=== PATIENT | male | born 1975 | race Caucasian/White ===

== ENCOUNTER 2018-03-17 18:19 | Emergency (ER) | payer OTHER ==
[2018-03-17] MEDS ORDERED: PROPARACAINE 0.5% OPHTH DROPS 15 ML EACHEYE STA (18:44)
--- NOTE | 2018-03-17 19:16 | ED Physician Documentation ---
PD HPI OPHTHO - Stated complaint Stated Complaint: R EYE F/O - Chief complaint Chief Complaint: Heent - History obtained from History obtained from: Patient - History of Present Illness Timing - onset: How many days ago (2) Timing - duration: Days (2) Timing - details: Abrupt onset Pain level max: 4 Pain level now: 3 Location: Right Quality / character: Aching Associated symptoms: Redness, Tearing, FB sensation Contributing factors: Work related, Other (Patient was grinding metal at work and later that day noted a discomfort to the right eye) Similar symptoms before: Has not had sx before Recently seen: Not recently seen Review of Systems Eyes: denies: Loss of vision, Decreased vision PD PAST MEDICAL HISTORY - Past Medical History Past Medical History: Yes Cardiovascular: None Respiratory: Pneumonia Endocrine/Autoimmune: Other GI: None : None HEENT: Chronic hearing loss Psych: None Musculoskeletal: None Derm: None - Past Surgical History Past Surgical History: No - Present Medications Home Medications: Ambulatory Orders Medication Instructions Recorded Confirmed Polymyxin B/Trimeth Ophth Drop 1 drops RIGHTEYE Q3H 7 Days #1 03/17/18 [Polytrim Ophth Drops] bottle - Allergies Allergies/Adverse Reactions: Allergies Allergy/AdvReac Type Severity Reaction Status Date / Time No Known Drug Allergies Allergy Verified 03/17/18 18:29 - Social History Does the pt smoke?: No Smoking Status: Never smoker Does the pt drink ETOH?: No Does the pt have substance abuse?: No - Immunizations Immunizations are current?: Yes PD ED PE NORMAL - Vitals Vital signs reviewed: Yes - General General: Alert and oriented X 3, No acute distress - HEENT HEENT: Moist mucous membranes - Neck Neck: Supple, no meningeal sign - Derm Derm: Warm and dry - Neuro Neuro: Alert and oriented X 3 PD ED PE EXPANDED - Eyes Eyes: Right eye, Normal eyelids, No eyelid FB (everted), Injected conj/sclera, Corneal FB (small metallic object inferolateral aspect of the cornea). No: Eyelid injury, Eyelid swelling Results - Vitals Vitals: Vital Signs - 24 hr 03/17/18 03/17/18 18:27 19:19 Temperature 36.7 C 36.8 C Heart Rate 86 83 Respiratory 18 17 Rate Blood Pressure 142/87 H 138/85 H O2 Saturation 96 95 Oxygen O2 Source Room air Procedures - FB removal FB location: Other (cornea) FB removal preparation: Other (proparacaine) Removal method: Other (slit lamp, 18g needle) FB removal aftercare: No complications, Patient tolerated well, Removed successfully PD MEDICAL DECISION MAKING - ED course Complexity details: considered differential, d/w patient ED course: Patient is a 42-year-old male with a small piece of metal embedded into the cornea of the right eye. This was removed. Tolerated well. There is a slight rust ring and will have him follow-up with ophthalmology for repeat evaluation. Tetanus is up-to-date. Will place on Polytrim ophthalmic. Patient counseled regarding signs and symptoms for which I believe and urgent re-evaluation would be necessary. Patient with good understanding of and agreement to plan and is comfortable going home at this time This document was made in part using voice recognition software. While efforts are made to proofread this document, sound alike and grammatical errors may occur. - Sepsis Event Vital Signs: Vital Signs - 24 hr 03/17/18 03/17/18 18:27 19:19 Temperature 36.7 C 36.8 C Heart Rate 86 83 Respiratory 18 17 Rate Blood Pressure 142/87 H 138/85 H O2 Saturation 96 95 Oxygen O2 Source Room air Departure - Departure Disposition: 01 Home, Self Care Clinical Impression: Status post removal of metal from eye Condition: Good Instructions: ED Foreign Body Cornea W Rust Ring Follow-Up: Rakan Vega MD [Provider Admit Priv/Credential] - Within 3 Days Prescriptions: Polymyxin B/Trimeth Ophth Drop [Polytrim Ophth Drops] 1 drops RIGHTEYE Q3H 7 Days #1 bottle Comments: Use the eyedrops as prescribed. Return if you worsen. It is very important to follow-up with ophthalmology to ensure that the entire foreign body was removed and there is not a ring of rust that needs to be removed from your eye. Discharge Date/Time: 03/17/18 19:27
[2018-03-17 19:19] VITALS: BP 138/85
== END 2018-03-17 19:27 | disposition home or self-care (01) ==
LOC: ED 18:19
DX: T15.01XA Foreign body in cornea, right eye, initial encounter (principal); W31.89XA Contact with other specified machinery, initial encounter; Y99.0 Civilian activity done for income or pay
CPT/HCPCS: 65222; 99283; J3490

== ENCOUNTER 2018-11-24 21:28 | Emergency (ER) | payer OTHER ==
[2018-11-24 21:39] VITALS: BP 147/78
[2018-11-24] MEDS ORDERED: CLINDAMYCIN 150 MG CAPSULE PO STA (21:49)
[2018-11-24] MEDS ORDERED: HYDROcod/ACET 5/325 Prepack 4 PO STA (21:49)
--- NOTE | 2018-11-24 21:51 | ED Physician Documentation ---
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 It's been a couple of years since he saw his dentist. No facial swelling or fevers.) Review of Systems Constitutional: denies: Fever, Chills Eyes: reports: Reviewed and negative Ears: reports: Reviewed and negative Nose: denies: Rhinorrhea / runny nose, Congestion PD PAST MEDICAL HISTORY - Past Medical History Past Medical History: Yes Cardiovascular: None Respiratory: Pneumonia Endocrine/Autoimmune: Other GI: None : None HEENT: Chronic hearing loss Psych: None Musculoskeletal: None Derm: None Other Past Medical History: Weagener's Disease - Past Surgical History Past Surgical History: No - Present Medications Home Medications: Ambulatory Orders Medication Instructions Recorded Confirmed Clindamycin HCl [Clindamycin 300MG 300 mg PO Q6H #28 capsule 11/24/18 CAP] Hydrocodone/Acetaminophen 1 - 2 each PO Q6H PRN #14 tablet 11/24/18 [Hydrocodon-Acetaminophen 5-325] - Allergies Allergies/Adverse Reactions: Allergies Allergy/AdvReac Type Severity Reaction Status Date / Time No Known Drug Allergies Allergy Verified 11/24/18 21:39 - Social History Does the pt smoke?: No Smoking Status: Never smoker Does the pt drink ETOH?: No Does the pt have substance abuse?: No - Immunizations Immunizations are current?: Yes - POLST Patient has POLST: No PD ED PE NORMAL - Vitals Vital signs reviewed: Yes - General General: Alert and oriented X 3, No acute distress - HEENT HEENT: Other (Mild tenderness of the left mandibular canine without facial swelling, sublingual edema, or trismus.) - Neck Neck: Supple, no meningeal sign, No bony TTP - Neuro Neuro: Alert and oriented X 3, Normal speech Results - Vitals Vitals: Vital Signs - 24 hr 11/24/18 21:30 Temperature 36.6 C Heart Rate 72 Respiratory 18 Rate Blood Pressure 147/78 H O2 Saturation 96 Oxygen O2 Source Room air Departure - Departure Disposition: 01 Home, Self Care Clinical Impression: Pain due to dental caries Condition: Good Record reviewed to determine appropriate education?: Yes Instructions: ED Tooth Pain Prescriptions: Clindamycin HCl [Clindamycin 300MG CAP] 300 mg PO Q6H #28 capsule Hydrocodone/Acetaminophen [Hydrocodon-Acetaminophen 5-325] 1 - 2 each PO Q6H PRN #14 tablet PRN Reason: pain Comments: It is very important that you follow-up with a dentist. When it comes to dental problems like yours, the emergency department can only offer a short-term solution to your long-term problem. A couple of low cost options for dental care include: [facility] in [place], calls [phone] for an appointment Or [facility] in [place], call [phone] for an appointment. Do not drink or drive while taking narcotic pain medication. Note that many narcotic pain relievers also contain Tylenol/acetaminophen. Please ensure that your total dose of acetaminophen from all sources does not exceed 3 g (3000 mg) per day. You may get constipated while on this medication. Take a stool softener such as Colace twice a day while you are on it. Also add an [id number] laxative such as senna or MiraLAX on any day that you do not have a bowel movement. If you received a narcotic pain medication or sedative while in the emergency department, do not drive for the next 24 hours. Your blood pressure was elevated today on check into the emergency department. This does not mean that you have hypertension, it is a common phenomenon to come to the emergency department and have elevated blood pressure. I recommend that you see your primary care physician within the week to have it rechecked when you are feeling better.
== END 2018-11-24 21:59 | disposition home or self-care (01) ==
LOC: ED 21:28
DX: K02.9 Dental caries, unspecified (principal); K08.89 Other specified disorders of teeth and supporting structures; R03.0 Elevated blood-pressure reading, without diagnosis of hypertension; M31.30 Wegener's granulomatosis without renal involvement
CPT/HCPCS: 99283; A9270

== ENCOUNTER 2020-03-09 11:48 | Emergency (ER) | payer MEDICAID, OTHER ==
--- NOTE | 2020-03-09 12:52 | ED Physician Documentation ---
History of Present Illness - Stated complaint Stated Complaint: L SIDE PX - Chief complaint Chief Complaint: General - History obtained from History obtained from: Patient - History of Present Illness Timing: Yesterday (44-year-old gentleman with history of Eliz's granulomatosis in remission, still gets monthly plasma infusions for same. Has had a minimally productive cough and increasing shortness of breath since last night. No fevers. Complains of pleuritic left-sided chest pain. No pedal edema or calf pain.) Review of Systems Constitutional: denies: Fever, Chills Cardiac: reports: Chest pain / pressure. denies: Palpitations Respiratory: reports: Dyspnea, Cough. denies: Hemoptysis, Wheezing GI: denies: Abdominal Pain PD PAST MEDICAL HISTORY - Past Medical History Cardiovascular: None Respiratory: Pneumonia Endocrine/Autoimmune: Other GI: None : None HEENT: Chronic hearing loss Psych: None Musculoskeletal: None Derm: None - Past Surgical History Past Surgical History: No - Present Medications Home Medications: Ambulatory Orders Medication Instructions Recorded Confirmed Clindamycin HCl [Clindamycin 300MG 300 mg PO Q6H #28 capsule 11/24/18 CAP] Hydrocodone/Acetaminophen 1 - 2 each PO Q6H PRN #14 tablet 11/24/18 [Hydrocodon-Acetaminophen 5-325] Amoxicillin 1,000 mg PO TID #60 capsule 03/09/20 Oxycodone HCl/Acetaminophen 1 - 2 each PO Q6H PRN #7 tablet 03/09/20 [Percocet 5-325 mg Tablet] - Allergies Allergies/Adverse Reactions: Allergies Allergy/AdvReac Type Severity Reaction Status Date / Time No Known Drug Allergies Allergy Verified 11/24/18 21:39 - Social History Does the pt smoke?: No Smoking Status: Never smoker Does the pt drink ETOH?: No Does the pt have substance abuse?: No - Immunizations Immunizations are current?: Yes - POLST Patient has POLST: No PD ED PE NORMAL - Vitals Vital signs reviewed: Yes - General General: Alert and oriented X 3, No acute distress - HEENT HEENT: PERRL, EOMI - Neck Neck: Supple, no meningeal sign, No bony TTP - Cardiac Cardiac: RRR, No murmur - Respiratory Respiratory: Other (Mildly diminished at the left base) - Abdomen Abdomen: Non tender - Extremities Extremities: No edema, No calf tenderness / cord - Neuro Neuro: Alert and oriented X 3, Normal speech Results - Vitals Vitals: Vital Signs - 24 hr 03/09/20 03/09/20 11:51 13:00 Temperature 36.4 C L Heart Rate 91 80 Respiratory 18 18 Rate Blood Pressure 151/96 H 138/95 H O2 Saturation 96 97 Oxygen O2 Source Room air - Labs Labs: Laboratory Tests 03/09/20 03/09/20 03/09/20 13:02 13:02 13:02 WBC 8.8 RBC 5.23 Hgb 16.1 Hct 48.0 MCV 91.8 MCH 30.8 MCHC 33.5 RDW 12.7 Plt Count 319 MPV 10.1 Neut # (Auto) 7.0 H Lymph # (Auto) 1.0 L [place] # (Auto) 0.7 Eos # (Auto) 0.1 Baso # (Auto) 0.0 Absolute Nucleated RBC 0.00 Nucleated RBC % 0.0 Sodium 137 Potassium 3.9 Chloride 100 L Carbon Dioxide 28 Anion Gap 9.0 BUN 13 Creatinine 0.7 Estimated GFR (MDRD) 122 Glucose 97 Lactic Acid 1.1 Calcium 8.9 Total Bilirubin 0.7 AST 43 H ALT 88 H Alkaline Phosphatase 70 Total Protein 7.6 Albumin 4.5 Globulin 3.1 Albumin/Globulin Ratio 1.5 Lipase 31 PD MEDICAL DECISION MAKING - ED course ED course: 44-year-old gentleman with history of pneumonia presents with symptoms consist ent with prior episodes of pneumonia, namely left lateral pleuritic chest pain and cough. Nothing else to suggest PE which was considered though but he is PE RC negative. X-ray negative, but still suspect early pneumonia given left shift. Departure - Departure Disposition: 01 Home, Self Care Clinical Impression: Pneumonia Qualifiers: Pneumonia type: due to unspecified organism Laterality: left Lung location: lower lobe of lung Qualified Code(s): J18.9 - Pneumonia, unspecified organism Condition: Good Record reviewed to determine appropriate education?: Yes Instructions: Pneumonia Dc Prescriptions: Amoxicillin 1,000 mg PO TID #60 capsule Oxycodone HCl/Acetaminophen [Percocet 5-325 mg Tablet] 1 - 2 each PO Q6H PRN #7 tablet PRN Reason: pain Comments: Return for worsening shortness of breath, high fevers, or other new or concerning symptoms. Follow-up with your doctor around Monday or for recheck.
[2020-03-09 13:07] LABS: BASOPHILS % (AUTO) 0.2 %; EOSINOPHILS # (AUTO) 0.1 10^3/uL (0.0-0.7); EOSINOPHILS % (AUTO) 1.1 %; HGB - HEMOGLOBIN 16.1 g/dL (14.0-18.0); LYMPHOCYTES % (AUTO) 10.9 %; MEAN CORPUSCULAR HEMOGLOBIN 30.8 pg (27.0-31.0); MEAN CORPUSCULAR HGB CONC 33.5 g/dL (32.0-36.0); MEAN CORPUSCULAR VOLUME 91.8 fL (80.0-94.0); MEAN PLATELET VOLUME 10.1 fL (7.4-11.4); MONOCYTES # (AUTO) 0.7 10^3/uL (0.0-1.0); MONOCYTES % (AUTO) 7.4 %; NEUTROPHILS % (AUTO) 80.1 %; PLT - PLATELET COUNT 319 10^3/uL (130-450); RED BLOOD COUNT 5.23 10^6/uL (4.70-6.10); RED CELL DISTRIBUTION WIDTH 12.7 % (12.0-15.0); WHITE BLOOD COUNT 8.8 x10^3/uL (4.8-10.8)
[2020-03-09 13:28] LABS: ALBUMIN 4.5 g/dL (3.2-5.5); ALBUMIN/GLOBULIN RATIO 1.5 (1.0-2.2); BILIRUBIN,TOTAL 0.7 mg/dL (0.2-1.0); CALCIUM 8.9 mg/dL (8.5-10.3); CREATININE 0.7 mg/dL (0.6-1.2); TOTAL PROTEIN 7.6 g/dL (6.7-8.2)
[2020-03-09] MEDS ORDERED: oxyCODONE 5 MG TABLET PO STA (13:34)
--- NOTE | 2020-03-09 14:37 | XRAY Report ---
PROCEDURE: Chest 2 View X-Ray INDICATIONS: cough L cP TECHNIQUE: 2 view(s) of the chest. COMPARISON: 09/01/2015. FINDINGS: Surgical changes and devices: None. Lungs and pleura: No pleural effusions or pneumothorax. Lungs are clear. Mediastinum: Mediastinal contours are normal. Heart size is normal. Bones and chest wall: No suspicious bony abnormalities. Soft tissues appear unremarkable. IMPRESSION: No acute cardiopulmonary pathology. Reviewed by: Jesse Ramos MD on 03/09/2020 2:35 PM PDT Approved by: Jesse Ramos MD on 03/09/2020 2:35 PM PDT Station ID: [id number]
[2020-03-09] MEDS ORDERED: AMOXICILLIN 250 MG CAPSULE PO STA (15:02)
[2020-03-09 15:10] VITALS: BP 150/107
== END 2020-03-09 15:27 | disposition home or self-care (01) ==
LOC: ED 11:48
DX: J18.9 Pneumonia, unspecified organism (principal); Z20.828 Contact with and (suspected) exposure to other viral communicable diseases
CPT/HCPCS: 71046; 80053; 83605; 83690; 85025; 87635; 99284; A9270; 81599

== ENCOUNTER 2020-03-17 10:43 | Emergency (ER) | payer MEDICAID ==
--- NOTE | 2020-03-17 11:43 | ED Physician Documentation ---
History of Present Illness - Stated complaint Stated Complaint: DIFFICULTY BREATHING - Chief complaint Chief Complaint: Resp - History obtained from History obtained from: Patient - Additonal information Additional information: 44yom with hx wegeners, seen last week and dx clinical pna, cxr clear. Pleuritic CP now gone but slight more dyspnea exp at night and in AM with productive cough celine at night. No fever. No pedal edema/calf pain. Review of Systems Constitutional: reports: Chills, Sweats. denies: Fever Nose: denies: Rhinorrhea / runny nose Cardiac: denies: Chest pain / pressure, Palpitations, Pedal edema, Calf pain Respiratory: reports: Dyspnea, Cough. denies: Hemoptysis GI: denies: Abdominal Pain PD PAST MEDICAL HISTORY - Past Medical History Cardiovascular: None Respiratory: Pneumonia Endocrine/Autoimmune: Other GI: None : None HEENT: Chronic hearing loss Psych: None Musculoskeletal: None Derm: None - Past Surgical History Past Surgical History: No - Present Medications Home Medications: Ambulatory Orders Medication Instructions Recorded Confirmed Clindamycin HCl [Clindamycin 300MG 300 mg PO Q6H #28 capsule 11/24/18 CAP] Hydrocodone/Acetaminophen 1 - 2 each PO Q6H PRN #14 tablet 11/24/18 [Hydrocodon-Acetaminophen 5-325] Amoxicillin 1,000 mg PO TID #60 capsule 03/09/20 Oxycodone HCl/Acetaminophen 1 - 2 each PO Q6H PRN #7 tablet 03/09/20 [Percocet 5-325 mg Tablet] Albuterol Sulf [Ventolin Hfa 1 - 2 puffs INH Q4HR PRN #1 inhaler 03/17/20 Inhaler] Doxycycline Hyclate 100 mg PO BID #20 capsule 03/17/20 predniSONE [Deltasone] 20 mg PO [id number] #21 tab 03/17/20 - Allergies Allergies/Adverse Reactions: Allergies Allergy/AdvReac Type Severity Reaction Status Date / Time No Known Drug Allergies Allergy Verified 11/24/18 21:39 - Social History Does the pt smoke?: No Smoking Status: Never smoker Does the pt drink ETOH?: No Does the pt have substance abuse?: No - Immunizations Immunizations are current?: Yes - POLST Patient has POLST: No PD ED PE NORMAL - Vitals Vital signs reviewed: Yes - General General: Alert and oriented X 3, No acute distress - HEENT HEENT: PERRL, EOMI - Neck Neck: Supple, no meningeal sign, No bony TTP, No JVD - Cardiac Cardiac: RRR, No murmur - Respiratory Respiratory: No respiratory distress, Other (rhonchorous at bases, mild exp wheeze, good aire movement.) - Extremities Extremities: No edema, No calf tenderness / cord - Neuro Neuro: Alert and oriented X 3, Normal speech Results - Vitals Vitals: Vital Signs - 24 hr 03/17/20 10:55 Temperature 36.6 C Heart Rate 93 Respiratory 16 Rate Blood Pressure 138/93 H O2 Saturation 96 Oxygen O2 Source Room air PD MEDICAL DECISION MAKING - ED course ED course: 44yom with underlying lung dz, worse dyspnea and cough. Nothing to suggest CHF/ACS/PE. VS normal. Will chg abx to doxy and add prednisone and albuterol. Departure - Departure Disposition: 01 Home, Self Care Clinical Impression: Dyspnea, Wegeners granulomatosis Condition: Good Record reviewed to determine appropriate education?: Yes Instructions: ED Bronchitis Asthmatic Prescriptions: Albuterol Sulf [Ventolin Hfa Inhaler] 1 - 2 puffs INH Q4HR PRN #1 inhaler PRN Reason: Shortness Of Air/Wheezing predniSONE [Deltasone] 20 mg PO [id number] #21 tab Doxycycline Hyclate 100 mg PO BID #20 capsule Comments: Vitals are good and chest xray still looks clear. Stop the amoxicillin and start doxycycline. Also the prednisone for lung inflammation and albuterol for wheezing/shortness of breathe. Return if worse. Followup with your primary [facility] about Monday. Call today for appt.
--- NOTE | 2020-03-17 11:44 | XRAY Report ---
PROCEDURE: Chest 2 View X-Ray INDICATIONS: pnumonia dx TECHNIQUE: 2 view(s) of the chest. COMPARISON: 03/09/2020. FINDINGS: Surgical changes and devices: None. Lungs and pleura: No pleural effusions or pneumothorax. Lungs are clear. Mediastinum: Mediastinal contours are normal. Heart size is normal. Bones and chest wall: No suspicious bony abnormalities. Soft tissues appear unremarkable. IMPRESSION: Stable examination of the chest without acute cardiopulmonary abnormalities. No radiogra phic evidence for new or developing focal airspace disease. Reviewed by: Sesar Frausto MD on 03/17/2020 11:42 AM PDT Approved by: Sesar Frausto MD on 03/17/2020 11:42 AM PDT Station ID: [id number]
[2020-03-17 11:46] VITALS: BP 139/99
== END 2020-03-17 11:46 | disposition home or self-care (01) ==
LOC: ED 10:43
DX: M31.30 Wegener's granulomatosis without renal involvement (principal)
CPT/HCPCS: 71046; 99283

== ENCOUNTER 2020-06-30 19:59 | Emergency (ER) | payer MEDICAID ==
[2020-06-30] MEDS ORDERED: HYDROmorphone 1 MG/ML CARPUJECT IM STA (20:14)
[2020-06-30] MEDS ORDERED: AMOX/CLAV 875 MG/125 MG TABLET PO STA (20:14)
--- NOTE | 2020-06-30 20:17 | ED Physician Documentation ---
History of Present Illness - Stated complaint Stated Complaint: MOUTH PX - Chief complaint Chief Complaint: Heent - Additonal information Additional information: 44-year-old male presents the emergency department with ongoing left lower mouth pain. He has generally poor dentition and multiple cavities. He has an appointment scheduled with the dentist for repair of the painful tooth on Monday. He has no fevers, trismus or dysphonia. He is here for pain control. He reports that this morning he noticed that the lower part of his jaw had started to swell somewhat. He does have a history of Eliz's granulomatosis for which he gets plasma infusions every 28 days [facility]. He is not on an immune suppressant. Review of Systems Constitutional: denies: Fever, Chills Eyes: reports: Reviewed and negative Ears: reports: Reviewed and negative Nose: reports: Reviewed and negative Throat: reports: Dental pain / toothache. denies: Oral lesions / sores, Sore throat, Swollen tonsils, Swallowed foreign body Cardiac: denies: Chest pain / pressure, Palpitations Respiratory: denies: Dyspnea, Hemoptysis GI: denies: Abdominal Pain, Nausea, Vomiting, Constipation, Diarrhea, Hematemesis : denies: Dysuria, Frequency, Hesitancy Skin: denies: Rash, Lesions Musculoskeletal: reports: Joint pain (generalized at baseline). denies: Neck pain PD PAST MEDICAL HISTORY - Past Medical History Past Medical History: Yes Cardiovascular: None Respiratory: Pneumonia Endocrine/Autoimmune: Other GI: None : None HEENT: Chronic hearing loss Psych: None Musculoskeletal: None Derm: None - Past Surgical History Past Surgical History: No - Present Medications Home Medications: Ambulatory Orders Medication Instructions Recorded Confirmed Amox/Clav 875/125 [Augmentin] 1 each PO Q12H #20 tablet 06/30/20 Hydrocodone/Acetaminophen 1 each PO BID PRN #7 tablet 06/30/20 [Hydrocodone-Acetamin 5-325 mg] - Allergies Allergies/Adverse Reactions: Allergies Allergy/AdvReac Type Severity Reaction Status Date / Time No Known Drug Allergies Allergy Verified 06/30/20 20:06 - Social History Does the pt smoke?: No Smoking Status: Never smoker Does the pt drink ETOH?: No Does the pt have substance abuse?: No - Immunizations Immunizations are current?: Yes - POLST Patient has POLST: No PD ED PE EXPANDED - General General: Alert, Anxious, In Pain - HEENT HEENT: Atraumatic, Pharynx normal (generally poor dentition. tooth #20 tender to light palpation. no gumline swellign or erythema). No: Pharyngeal erythema Results - Vitals Vitals: Vital Signs - 24 hr 06/30/20 20:02 Temperature 36.3 C L Heart Rate 119 H Respiratory 18 Rate Blood Pressure 162/92 H O2 Saturation 96 Oxygen O2 Source Room air PD MEDICAL DECISION MAKING - ED course Complexity details: reviewed old records, reviewed results, re-evaluated patient, considered differential, d/w patient ED course: 44 year old male presents to the ED with worsening left lower mouth pain and mild swelling of the jaw. He has globally poor dentition and is scheduled to see a dentist in 3 days. No fevers, dysphonia or trismus. Pt initally appeared in pain and anxious. his HR was noted to be 119. He was given Dilaudid in the ED with moderate relief of pain. HR also improved. Pt was also given first dose of augmentin here in the ED and will be dc with a 10 days rx. Emergent return precautions discussed for worsening symptoms Departure - Departure Disposition: Home, Self Care Clinical Impression: Infected dental carries, Dentalgia Record reviewed to determine appropriate education?: Yes Prescriptions: Amox/Clav 875/125 [Augmentin] 1 each PO Q12H #20 tablet Hydrocodone/Acetaminophen [Hydrocodone-Acetamin 5-325 mg] 1 each PO BID PRN #7 tablet PRN Reason: Pain
[2020-06-30 20:42] VITALS: BP 141/91
== END 2020-06-30 20:51 | disposition home or self-care (01) ==
LOC: ED 19:59
DX: K04.7 Periapical abscess without sinus (principal); K02.9 Dental caries, unspecified; K08.89 Other specified disorders of teeth and supporting structures; M31.30 Wegener's granulomatosis without renal involvement
CPT/HCPCS: 96372; 99283; A9270; J1170

== ENCOUNTER 2020-08-17 17:08 | Emergency (ER) | payer MEDICAID ==
[2020-08-17 17:14] VITALS: BP 172/99
[2020-08-17] MEDS ORDERED: HYDROcod/ACETAM 5/325 MG TABLET PO STA (17:19)
--- NOTE | 2020-08-17 17:20 | ED Physician Documentation ---
History of Present Illness - Stated complaint Stated Complaint: MOUTH PX - Chief complaint Chief Complaint: General - History obtained from History obtained from: Patient - Additonal information Additional information: 44-year-old gentleman who had Eliz's granulomatosis in remission now has a Recurrence. Because of the treatments for that he says he has bad teeth and has had about 3 days of dental pain from the left mandibular premolar and molar. No facial swelling or fevers. Review of Systems Constitutional: reports: Reviewed and negative Eyes: reports: Reviewed and negative Ears: reports: Reviewed and negative Nose: reports: Reviewed and negative Throat: reports: Reviewed and negative PD PAST MEDICAL HISTORY - Past Medical History Cardiovascular: None Respiratory: Pneumonia Endocrine/Autoimmune: Other GI: None : None HEENT: Chronic hearing loss Psych: None Musculoskeletal: None Derm: None - Past Surgical History Past Surgical History: No - Present Medications Home Medications: Ambulatory Orders Medication Instructions Recorded Confirmed HYDROcod/ACETAM 5/325 [[place] 5/325] 1 - 2 tab PO Q6H PRN #15 tablet 08/17/20 Penicillin V Potassium 500 mg PO Q6HR #40 tablet 08/17/20 - Allergies Allergies/Adverse Reactions: Allergies Allergy/AdvReac Type Severity Reaction Status Date / Time No Known Drug Allergies Allergy Verified 08/17/20 17:14 - Social History Does the pt smoke?: No Smoking Status: Never smoker Does the pt drink ETOH?: No Does the pt have substance abuse?: No - Immunizations Immunizations are current?: Yes - POLST Patient has POLST: No PD ED PE NORMAL - Vitals Vital signs reviewed: Yes - General General: Alert and oriented X 3, No acute distress - HEENT HEENT: Other (Generally poor dentition, the second premolar and first molar on the left mandible are tender but no facial swelling, sublingual edema, or trismus.) - Neck Neck: Supple, no meningeal sign, No bony TTP - Neuro Neuro: Alert and oriented X 3 Results - Vitals Vitals: Vital Signs - 24 hr 08/17/20 17:10 Temperature 36.7 C Heart Rate 92 Respiratory 20 Rate Blood Pressure 172/99 H O2 Saturation 100 Oxygen O2 Source Room air Departure - Departure Disposition: 01 Home, Self Care Clinical Impression: Pain due to dental caries Condition: Good Record reviewed to determine appropriate education?: Yes Instructions: ED Cavity Dental Prescriptions: Penicillin V Potassium 500 mg PO Q6HR #40 tablet HYDROcod/ACETAM 5/325 [[place] 5/325] 1 - 2 tab PO Q6H PRN #15 tablet PRN Reason: Pain Comments: Make sure to follow-up with your dentist at [facility], next available appointment. Return if worsening.
== END 2020-08-17 17:25 | disposition home or self-care (01) ==
LOC: ED 17:08
DX: K02.9 Dental caries, unspecified (principal); M31.30 Wegener's granulomatosis without renal involvement
CPT/HCPCS: 99282; 99283; A9270

== ENCOUNTER 2020-09-29 06:26 | Emergency (ER) | payer MEDICAID ==
--- NOTE | 2020-09-29 07:23 | ED Physician Documentation ---
History of Present Illness - Stated complaint Stated Complaint: MOUTH PX - Chief complaint Chief Complaint: Heent - History obtained from History obtained from: Patient - History of Present Illness Timing: Chronic Pain level max: 9 Pain level now: 9 - Additonal information Additional information: 44-year-old male presents to the emergency department left lower dental pain. 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 He states that he has been trying to get a hold of his dentist at the emergency [facility] for 4 months. He states that he saw them last month and they took x-rays of his mouth but made no plan. He denies any fevers. No vomiting. No difficulty swallowing. Worse with eating and drinking. Nothing makes it better. Review of Systems Constitutional: denies: Fever, Chills GI: denies: Vomiting Skin: denies: Rash Musculoskeletal: denies: Neck pain, Back pain Neurologic: denies: Headache PD PAST MEDICAL HISTORY - Past Medical History Cardiovascular: None Respiratory: Pneumonia Endocrine/Autoimmune: Other GI: None : None HEENT: Chronic hearing loss Psych: None Musculoskeletal: None Derm: None - Past Surgical History Past Surgical History: No - Present Medications Home Medications: Ambulatory Orders Medication Instructions Recorded Confirmed HYDROcod/ACETAM 5/325 [[place] 5/325] 1 - 2 ea PO Q6H PRN #7 tablet 09/29/20 Penicillin V Potassium 500 mg PO Q6HR #40 tablet 09/29/20 - Allergies Allergies/Adverse Reactions: Allergies Allergy/AdvReac Type Severity Reaction Status Date / Time No Known Drug Allergies Allergy Verified 09/29/20 06:37 - Social History Does the pt smoke?: No Smoking Status: Never smoker Does the pt drink ETOH?: No Does the pt have substance abuse?: No - Immunizations Immunizations are current?: Yes - POLST Patient has POLST: No PD ED PE NORMAL - Vitals Vital signs reviewed: Yes - General General: Alert and oriented X 3, No acute distress - HEENT HEENT: Moist mucous membranes - Neck Neck: Supple, no meningeal sign - Derm Derm: Warm and dry - Neuro Neuro: Alert and oriented X 3 - Psych Psych: Normal mood, Normal affect PD ED PE EXPANDED - HEENT HEENT Visual: 1 - tenderness (dental caries) Results - Vitals Vitals: Vital Signs - 24 hr 09/29/20 06:35 Temperature 36.5 C Heart Rate 94 Respiratory 16 Rate Blood Pressure 163/102 H O2 Saturation 98 Oxygen O2 Source Room air PD MEDICAL DECISION MAKING - ED course Complexity details: reviewed old records, considered differential, d/w patient ED course: GARY reviewed. Patient has had 4 emergency department visits in 4 months for the same complaint. We reviewed emergency department usage. Reviewed his narcotic usage. Informed him that the policy of this ER is 3 narcotic prescriptions in a 12-month. Recommend that he follow-up with his dentist for further care. He should call them daily until he gets a call back from them. No abscess. Normal phonation. No trismus. Does have dental caries. Will place him on antibiotics. Patient counseled regarding signs and symptoms for which I believe and urgent re-evaluation would be necessary. Patient with good understanding of and agreement to plan and is comfortable going home at this time This document was made in part using voice recognition software. While efforts are made to proofread this document, sound alike and grammatical errors may occur. Departure - Departure Disposition: 01 Home, Self Care Clinical Impression: Pain due to dental caries Condition: Good Instructions: ED Tooth Pain Follow-Up: your,dentist this week [Other] Prescriptions: Penicillin V Potassium 500 mg PO Q6HR #40 tablet HYDROcod/ACETAM 5/325 [[place] 5/325] 1 - 2 ea PO Q6H PRN #7 tablet PRN Reason: Pain Comments: As we discussed, three narcotic prescriptions per 12 months is the limit that you can receive in the emergency department. This will be your third prescription from this ER in 4 months. You need to follow-up with your dentist for all further care. You need to call them daily until they can get you in and be seen. Take all antibiotics until gone. Do not drink alcohol or drive while on narcotic pain medicine. Note that many narcotic pain relievers also contain tylenol/acetaminophen. Please ensure that your total dose of acetaminophen from all sources does not exceed 3 grams (3000mg) per day. You may constipated on this medication, take a stool softener such as "Colace" twice a day while you are on it. Also recommend a ctht-xxo-balqeof laxative such as senna or MiraLAX any day that you do not have a bowel movement. If you received narcotic pain medication in the emergency department, do not drive or operate machinery for the next 24 hours.
[2020-09-29] MEDS ORDERED: HYDROcod/ACETAM 5/325 MG TABLET PO STA (07:24)
[2020-09-29 07:49] VITALS: BP 157/79
== END 2020-09-29 07:49 | disposition home or self-care (01) ==
LOC: ED 06:26
DX: K02.9 Dental caries, unspecified (principal); K08.89 Other specified disorders of teeth and supporting structures; M31.30 Wegener's granulomatosis without renal involvement
CPT/HCPCS: 99282; 99284; A9270

== ENCOUNTER 2020-11-04 14:04 | Emergency (ER) | payer MEDICAID ==
--- NOTE | 2020-11-04 14:22 | ED Physician Documentation ---
History of Present Illness - Stated complaint Stated Complaint: FEVER - Chief complaint Chief Complaint: General - History obtained from History obtained from: Patient - Additonal information Additional information: Gentleman has a history of Eliz's granulomatosis for which he receives every 4 week plasma infusions. He was exposed to somebody with Covid a few days ago and over the last couple of days has developed a fever to 100.3, minimally productive cough and shortness of breath. Review of Systems Constitutional: reports: Fever, Chills Nose: denies: Rhinorrhea / runny nose Throat: denies: Sore throat Respiratory: reports: Dyspnea, Cough PD PAST MEDICAL HISTORY - Past Medical History Cardiovascular: None Respiratory: Pneumonia Endocrine/Autoimmune: Other GI: None : None HEENT: Chronic hearing loss Psych: None Musculoskeletal: None Derm: None - Past Surgical History Past Surgical History: No - Present Medications Home Medications: Ambulatory Orders Medication Instructions Recorded Confirmed HYDROcod/ACETAM 5/325 [[place] 5/325] 1 - 2 ea PO Q6H PRN #7 tablet 09/29/20 Penicillin V Potassium 500 mg PO Q6HR #40 tablet 09/29/20 - Allergies Allergies/Adverse Reactions: Allergies Allergy/AdvReac Type Severity Reaction Status Date / Time No Known Drug Allergies Allergy Verified 11/04/20 14:10 - Social History Does the pt smoke?: No Smoking Status: Never smoker Does the pt drink ETOH?: No Does the pt have substance abuse?: No - Immunizations Immunizations are current?: Yes - POLST Patient has POLST: No PD ED PE NORMAL - Vitals Vital signs reviewed: Yes - General General: Alert and oriented X 3, No acute distress, Well developed/nourished - Cardiac Cardiac: RRR, No murmur - Respiratory Respiratory: No respiratory distress, Clear bilaterally - Abdomen Abdomen: Non tender - Neuro Neuro: Alert and oriented X 3, Normal speech Results - Vitals Vitals: Vital Signs - 24 hr 11/04/20 11/04/20 14:10 14:36 Temperature 36.9 C Heart Rate 110 H 95 Respiratory 20 12 Rate Blood Pressure 135/79 H 114/83 H O2 Saturation 98 97 Oxygen O2 Source Room air - Labs Labs: Laboratory Tests 11/04/20 14:25 Nasal Adenovirus (PCR) NOT DETECTED Nasal B. parapertussis DNA (PCR) NOT DETECTED Nasal Coronavir 229E PCR NOT DETECTED Nasal Coronavir HKU1 PCR NOT DETECTED Nasal Coronavir NL63 PCR NOT DETECTED Nasal Coronavir OC43 PCR NOT DETECTED Nasal Enterovir/Rhinovir PCR NOT DETECTED Nasal Influenza B PCR NOT DETECTED Nasal Influenza A PCR NOT DETECTED Nasal Parainfluen 1 PCR NOT DETECTED Nasal Parainfluen 2 PCR NOT DETECTED Nasal Parainfluen 3 PCR NOT DETECTED Nasal Parainfluen 4 PCR NOT DETECTED Nasal RSV (PCR) NOT DETECTED Nasal B.pertussis DNA PCR NOT DETECTED Nasal C.pneumoniae (PCR) NOT DETECTED Aiden Human Metapneumo PCR NOT DETECTED Nasal M.pneumoniae (PCR) NOT DETECTED Nasal SARS-CoV-2 (PCR) NOT DETECTED - Rads (name of study) 1v chest Radiology: EMP read contemporaneously (NAD) PD MEDICAL DECISION MAKING - ED course ED course: 45-year-old gentleman presents with some anxiety about potentially having Covid given his underlying comorbidities. Rapid coronavirus test was negative and his chest x-ray is negative as well. We did do a rapid test because if the vinson test had been positive, he would be a candidate for antibody infusion. Departure - Departure Disposition: 01 Home, Self Care Clinical Impression: Viral URI with cough Condition: Good Record reviewed to determine appropriate education?: Yes Instructions: ED Viral Syndrome Comments: Coronavirus test and chest x-ray are negative. Return if worsening but right now you can treat this like any other cough or cold.
--- NOTE | 2020-11-04 14:47 | XRAY Report ---
PROCEDURE: Chest 1 View X-Ray INDICATIONS: cough TECHNIQUE: One view of the chest was acquired. COMPARISON: 03/17/2020 chest x-ray FINDINGS: Surgical changes and devices: None. Lungs and pleura: No pleural effusions or pneumothorax. Lungs are clear. Mediastinum: Mediastinal contours appear normal. Heart size is normal. Bones and chest wall: No suspicious bony lesions. Overlying soft tissues appear unremarkable. IMPRESSION: No acute process. Reviewed by: Kevin Pemberton MD on 11/04/2020 2:46 PM PST Approved by: Kevin Pemberton MD on 11/04/2020 2:46 PM PST Station ID: [id number]
[2020-11-04 15:28] LABS: B. PARAPERTUSSIS- RESP PCR PAN NOT DETECTED; B. PERTUSSIS- RESP PCR PANEL NOT DETECTED; C. PNEUMONIAE- RESP PCR PANEL NOT DETECTED; CORONAVIRUS 229E-RESP PCR NOT DETECTED; CORONAVIRUS HKU1-RESP PCR NOT DETECTED; CORONAVIRUS NL63-RESP PCR NOT DETECTED; CORONAVIRUS OC43-RESP PCR NOT DETECTED; HUMAN METAPNEUMOVIRUS NOT DETECTED; INFLUENZA A- RESP PCR PANEL NOT DETECTED; INFLUENZA B - RESP PCR PANEL NOT DETECTED; M. PNEUMONIAE- RESP PCR PANEL NOT DETECTED; PARAINFLUENZA VIRUS 1 NOT DETECTED; PARAINFLUENZA VIRUS 2 NOT DETECTED; PARAINFLUENZA VIRUS 3 NOT DETECTED; PARAINFLUENZA VIRUS 4 NOT DETECTED; RHINOVIRUS/ENTEROVIRUS NOT DETECTED; RSV- RESP PCR PANEL NOT DETECTED; SARS-CoV-2 -RESP PCR PANEL NOT DETECTED
[2020-11-04 15:40] VITALS: BP 136/78
== END 2020-11-04 15:39 | disposition home or self-care (01) ==
LOC: ED 14:04
DX: J06.9 Acute upper respiratory infection, unspecified (principal); Z20.822 Contact with and (suspected) exposure to COVID-19; M31.30 Wegener's granulomatosis without renal involvement
CPT/HCPCS: 0202U; 71045; 99283; 99284

== ENCOUNTER 2020-12-21 17:23 | Emergency (ER) | payer MEDICAID ==
--- OUTSIDE RECORDS SUMMARY | 2020-12-21 17:27 | EXTERNAL MEDICAL SUMMARY RPT | Continuity of Care Document ---
:1975 Demographics Phone Unavailable Preferred Language Unknown Marital Status Unknown Rastafari Affiliation Unknown Race Unknown Ethnic Group Unknown Author Organization [facility] Address [address] [place] [address] Phone Social History date description facility [phone]
--- OUTSIDE RECORDS SUMMARY | 2020-12-21 17:36 | EXTERNAL MEDICAL SUMMARY RPT | Continuity of Care Document ---
:1975 Demographics Phone Unavailable Preferred Language Unknown Marital Status Unknown Denominational Affiliation Unknown Race Unknown Ethnic Group Unknown Author Organization [facility] Address [address] [place] [address] Phone Social History date description facility [phone]
[2020-12-21 17:38] VITALS: BP 145/97
--- NOTE | 2020-12-21 18:46 | XRAY Report ---
PROCEDURE: Chest 2 View X-Ray INDICATIONS: cough TECHNIQUE: 2 view(s) of the chest. COMPARISON: None. FINDINGS: Surgical changes and devices: None. Lungs and pleura: No pleural effusions or pneumothorax. Mildly increased bronchovascular markings in bilateral hilar region are seen with bronchial wall thickening. No focal infiltrate. Mediastinum: Mediastinal contours are normal. Heart size is normal. Bones and chest wall: No suspicious bony abnormalities. Soft tissues appear unremarkable. IMPRESSION: Suggestion of mild reactive airway disease such as bronchitis or asthma. No focal infiltr ate. Reviewed by: Jesse Ramos MD on 12/21/2020 5:45 PM AKDT Approved by: Jesse Ramos MD on 12/21/2020 5:45 PM AKDT Station ID: [id number]
[2020-12-21] MEDS ORDERED: DOXYCYCLINE 100 MG TABLET PO STA (18:56)
--- NOTE | 2020-12-21 18:57 | ED Physician Documentation ---
PD HPI DYSPNEA - Stated complaint Stated Complaint: COUGH/CHILLS - Chief complaint Chief Complaint: Resp - History obtained from History obtained from: Patient - Additional information Additional information: 45-year-old gentleman with history of Eliz's granulomatosis, he gets infusions of plasma every 28 days for same. Starting last night he has had a nonproductive cough with low-grade fever but no shortness of breath. No sick contacts. No runny nose or sore throat. Review of Systems Constitutional: reports: Fever. denies: Chills, Fatigue Cardiac: denies: Chest pain / pressure Respiratory: reports: Dyspnea, Cough PD PAST MEDICAL HISTORY - Past Medical History Past Medical History: Yes Cardiovascular: None Respiratory: Pneumonia Endocrine/Autoimmune: Other GI: None : None HEENT: Chronic hearing loss Psych: None Musculoskeletal: None Derm: None - Past Surgical History Past Surgical History: No - Present Medications Home Medications: Ambulatory Orders Medication Instructions Recorded Confirmed HYDROcod/ACETAM 5/325 [[place] 5/325] 1 - 2 ea PO Q6H PRN #7 tablet 09/29/20 Penicillin V Potassium 500 mg PO Q6HR #40 tablet 09/29/20 Doxycycline Hyclate 100 mg PO BID #14 12/21/20 guaiFENesin/CODEINE [Robitussin AC] 5 - 10 ml PO Q6H PRN #120 ml 12/21/20 - Allergies Allergies/Adverse Reactions: Allergies Allergy/AdvReac Type Severity Reaction Status Date / Time No Known Drug Allergies Allergy Verified 12/21/20 17:34 - Social History Does the pt smoke?: No Smoking Status: Never smoker Does the pt drink ETOH?: No Does the pt have substance abuse?: No - Immunizations Immunizations are current?: Yes - POLST Patient has POLST: No PD ED PE NORMAL - Vitals Vital signs reviewed: Yes - General General: Alert and oriented X 3, No acute distress - HEENT HEENT: PERRL, EOMI - Neck Neck: Supple, no meningeal sign, No bony TTP - Cardiac Cardiac: RRR, No murmur - Respiratory Respiratory: No respiratory distress, Clear bilaterally - Abdomen Abdomen: Non tender - Extremities Extremities: No edema, No calf tenderness / cord - Neuro Neuro: Alert and oriented X 3, Normal speech Results - Vitals Vitals: Vital Signs - 24 hr 12/21/20 17:35 Temperature 36.7 C Heart Rate 118 H Respiratory 16 Rate Blood Pressure 145/97 H O2 Saturation 96 Oxygen O2 Source Room air - Rads (name of study) 2v chest Radiology: EMP read contemporaneously (No focal infiltrate but suggestive of reactive airways disease.) PD MEDICAL DECISION MAKING - ED course ED course: Normally the clinical syndrome would not necessitate antibiotics but with the underlying autoimmune disease, probably but we would be west to treat with same. Departure - Departure Disposition: 01 Home, Self Care Clinical Impression: Wegeners granulomatosis Condition: Good Record reviewed to determine appropriate education?: Yes Instructions: ED Bronchitis Asthmatic Prescriptions: Doxycycline Hyclate 100 mg PO BID #14 guaiFENesin/CODEINE [Robitussin AC] 5 - 10 ml PO Q6H PRN #120 ml PRN Reason: Cough
== END 2020-12-21 19:08 | disposition home or self-care (01) ==
LOC: ED 17:23
DX: M31.30 Wegener's granulomatosis without renal involvement (principal)
CPT/HCPCS: 71046; 99283; 99284; A9270

== ENCOUNTER 2021-07-21 04:17 | Emergency (ER) | payer MEDICAID ==
[2021-07-21] MEDS ORDERED: BENZONATATE 100 MG CAPSULE PO STA (04:53)
[2021-07-21] MEDS ORDERED: DOXYCYCLINE 100 MG TABLET PO STA (04:53)
[2021-07-21 05:30] LABS: BASOPHILS % (AUTO) 0.2 %; EOSINOPHILS # (AUTO) 0.2 10^3/uL (0.0-0.7); EOSINOPHILS % (AUTO) 1.4 %; HCT - HEMATOCRIT 46.2 % (42.0-52.0); HGB - HEMOGLOBIN 15.6 g/dL (14.0-18.0); LYMPHOCYTES # (AUTO) 0.9 10^3/uL (1.5-3.5); LYMPHOCYTES % (AUTO) 5.9 %; MEAN CORPUSCULAR HEMOGLOBIN 30.9 pg (27.0-31.0); MEAN CORPUSCULAR HGB CONC 33.8 g/dL (32.0-36.0); MEAN CORPUSCULAR VOLUME 91.5 fL (80.0-94.0); MONOCYTES % (AUTO) 6.6 %; NEUTROPHILS # (AUTO) 12.7 10^3/uL (1.5-6.6); NEUTROPHILS % (AUTO) 85.6 %; PLT - PLATELET COUNT 284 10^3/uL (130-450); RED BLOOD COUNT 5.05 10^6/uL (4.70-6.10); RED CELL DISTRIBUTION WIDTH 12.6 % (12.0-15.0); WHITE BLOOD COUNT 14.8 x10^3/uL (4.8-10.8)
[2021-07-21 05:37] LABS: CALCIUM 8.7 mg/dL (8.5-10.3); CREATININE 0.6 mg/dL (0.6-1.2); POTASSIUM 3.9 mmol/L (3.5-5.0)
--- NOTE | 2021-07-21 05:51 | ED Physician Documentation ---
PD HPI URI - Stated complaint Stated Complaint: COUGH/SOA - Chief complaint Chief Complaint: Resp - Additional information Additional information: Patient is a 45-year-old male with past medical significant for Eliz's granulomatosis presenting to the emergency department with cough and subjective fever at home. Reports seen by primary care 2 days ago. Received Covid vaccination at that time. Since that time reported subjective low-grade fever at home as well as nonproductive cough. Denies chest pain, shortness of breath, abdominal pain, nausea, vomiting, diarrhea, constipation. Does report that he has follow-up with his primary care doctor for plasma infusion tomorrow. Review of Systems Constitutional: reports: Fever. denies: Chills Eyes: denies: Loss of vision Ears: denies: Loss of hearing Nose: denies: Rhinorrhea / runny nose Throat: denies: Dental pain / toothache Cardiac: denies: Chest pain / pressure Respiratory: reports: Cough. denies: Dyspnea, Hemoptysis, Wheezing GI: denies: Abdominal Pain, Nausea, Vomiting : denies: Dysuria PD PAST MEDICAL HISTORY - Past Medical History Past Medical History: Yes Cardiovascular: None Respiratory: Pneumonia, Other (Eliz's granulomatosis) Neuro: None Endocrine/Autoimmune: Other GI: None : None HEENT: Chronic hearing loss Psych: None Musculoskeletal: None Derm: None - Past Surgical History Past Surgical History: No - Present Medications Home Medications: Ambulatory Orders Medication Instructions Recorded Confirmed HYDROcod/ACETAM 5/325 [[place] 5/325] 1 - 2 ea PO Q6H PRN #7 tablet 09/29/20 Penicillin V Potassium 500 mg PO Q6HR #40 tablet 09/29/20 Doxycycline Hyclate 100 mg PO BID #14 12/21/20 guaiFENesin/CODEINE [Robitussin AC] 5 - 10 ml PO Q6H PRN #120 ml 12/21/20 Benzonatate [Tessalon] 200 mg PO TID PRN #30 cap 07/21/21 Doxycycline Hyclate 100 mg PO BID #20 tab 07/21/21 - Allergies Allergies/Adverse Reactions: Allergies Allergy/AdvReac Type Severity Reaction Status Date / Time No Known Drug Allergies Allergy Verified 07/21/21 04:32 - Social History Does the pt smoke?: No Smoking Status: Never smoker Does the pt drink ETOH?: No Does the pt have substance abuse?: No - Immunizations Immunizations are current?: Yes - POLST Patient has POLST: No PD ED PE NORMAL - General General: Alert and oriented X 3 - HEENT HEENT: Atraumatic - Neck Neck: Supple, no meningeal sign, No JVD - Cardiac Cardiac: RRR, No gallop - Abdomen Abdomen: Normal bowel sounds, Soft - Male Male : Deferred - Rectal Rectal: Deferred - Derm Derm: Normal color, No rash PD ED PE EXPANDED - Respiratory Respiratory: Other (Cough). No: Distress, Labored, Stridor, Gasping, Accessory mm use, Retractions, Wheezing, Rhonchi, Rales, Decreased breath sounds, Absent Breath Sounds, Right upper lobe, Right middle lobe, Right lower lobe, Left upper lobe, Left lower lobe Results - Vitals Vitals: Vital Signs - 24 hr 07/21/21 07/21/21 04:29 05:24 Temperature 36.4 C L Heart Rate 106 H 97 Respiratory 17 18 Rate Blood Pressure 146/92 H 132/89 H O2 Saturation 96 97 Oxygen O2 Source Room air - Labs Labs: Laboratory Tests 07/21/21 07/21/21 07/21/21 04:58 05:23 05:23 WBC 14.8 H RBC 5.05 Hgb 15.6 Hct 46.2 MCV 91.5 MCH 30.9 MCHC 33.8 RDW 12.6 Plt Count 284 MPV 10.0 Neut # (Auto) 12.7 H Lymph # (Auto) 0.9 L [place] # (Auto) 1.0 Eos # (Auto) 0.2 Baso # (Auto) 0.0 Absolute Nucleated RBC 0.00 Nucleated RBC % 0.0 Sodium 136 Potassium 3.9 Chloride 103 Carbon Dioxide 24 Anion Gap 9.0 BUN 14 Creatinine 0.6 Estimated GFR (MDRD) 145 Glucose 113 H Calcium 8.7 Nasal Adenovirus (PCR) NOT DETECTED Nasal B. parapertussis DNA (PCR) NOT DETECTED Nasal Coronavir 229E PCR NOT DETECTED Nasal Coronavir HKU1 PCR NOT DETECTED Nasal Coronavir NL63 PCR NOT DETECTED Nasal Coronavir OC43 PCR NOT DETECTED Nasal Enterovir/Rhinovir PCR DETECTED A Nasal Influenza B PCR NOT DETECTED Nasal Influenza A PCR NOT DETECTED Nasal Parainfluen 1 PCR NOT DETECTED Nasal Parainfluen 2 PCR NOT DETECTED Nasal Parainfluen 3 PCR NOT DETECTED Nasal Parainfluen 4 PCR NOT DETECTED Nasal RSV (PCR) NOT DETECTED Nasal B.pertussis DNA PCR NOT DETECTED Nasal C.pneumoniae (PCR) NOT DETECTED Aiden Human Metapneumo PCR NOT DETECTED Nasal M.pneumoniae (PCR) NOT DETECTED Nasal SARS-CoV-2 (PCR) NOT DETECTED - Rads (name of study) [id number] Radiology: Prelim report reviewed (Impression: No acute cardiopulmonary disease) PD MEDICAL DECISION MAKING - ED course Complexity details: reviewed old records, reviewed results, d/w patient ED course: Patient is a 45-year-old male presenting to the emergency department with nonproductive cough and subjective fever at home in setting of immunocompromise and Eliz's granulomatosis. Patient afebrile, hemodynamically stable on arrival to the emergency department. Did have persistent nonproductive cough and was given Tessalon while in the emergency department. Labs obtained demonstrated mild leukocytosis. X-ray obtained was nonacute. His viral panel was negative for influenza or the novel coronavirus however was positive for rhinovirus. Patient observed in the emergency department for approximately 2 hours over which time he was reevaluated on multiple occasions and found to be resting comfortably and in no acute distress. Given his history of immunocompromise I will treat his elevated leukocytosis with a course of doxycycline. He was encouraged to follow-up carefully with his primary care doctor with whom he has an appointment in the next 24 hours or to return to the emergency department for any new or worsening symptoms. Departure - Departure Disposition: 01 Home, Self Care Clinical Impression: Rhinovirus infection Condition: Fair Instructions: ED Viral Syndrome Prescriptions: Doxycycline Hyclate 100 mg PO BID #20 tab Benzonatate [Tessalon] 200 mg PO TID PRN #30 cap PRN Reason: Cough Comments: Thank you for allowing us to care for you today at [facility] Your viral screening swab was positive for rhinovirus. The remainder of your tests are very reassuring. Because of your complex medical history and immunocompromised state I would like you to begin a course of oral antibiotics. I have sent these to [facility] in [place]. I also wrote a prescription for Tessalon [place] to help with your cough. Please keep your follow-up appointment with your primary care doctor. If it anytime you have any new or worsening symptoms please not hesitate to return to the emergency department.
[2021-07-21 06:00] LABS: CORONAVIRUS 229E-RESP PCR NOT DETECTED; CORONAVIRUS HKU1-RESP PCR NOT DETECTED; CORONAVIRUS NL63-RESP PCR NOT DETECTED; CORONAVIRUS OC43-RESP PCR NOT DETECTED; HUMAN METAPNEUMOVIRUS NOT DETECTED; INFLUENZA A- RESP PCR PANEL NOT DETECTED; RHINOVIRUS/ENTEROVIRUS DETECTED; SARS-CoV-2 -RESP PCR PANEL NOT DETECTED
[2021-07-21 06:01] LABS: B. PARAPERTUSSIS- RESP PCR PAN NOT DETECTED; B. PERTUSSIS- RESP PCR PANEL NOT DETECTED; C. PNEUMONIAE- RESP PCR PANEL NOT DETECTED; INFLUENZA B - RESP PCR PANEL NOT DETECTED; M. PNEUMONIAE- RESP PCR PANEL NOT DETECTED; PARAINFLUENZA VIRUS 1 NOT DETECTED; PARAINFLUENZA VIRUS 2 NOT DETECTED; PARAINFLUENZA VIRUS 3 NOT DETECTED; PARAINFLUENZA VIRUS 4 NOT DETECTED; RSV- RESP PCR PANEL NOT DETECTED
[2021-07-21 06:22] VITALS: BP 140/93
--- NOTE | 2021-07-21 07:23 | XRAY Report ---
PROCEDURE: Chest 1 View X-Ray INDICATIONS: chest pain TECHNIQUE: One view of the chest was acquired. COMPARISON: 12/21/2020 FINDINGS: Surgical changes and devices: None. Lungs and pleura: No pleural effusions or pneumothorax. Lungs are clear. Mediastinum: Mediastinal contours appear normal. Heart size is normal. Bones and chest wall: No suspicious bony lesions. Overlying soft tissues appear unremarkable. IMPRESSION: Stable examination of the chest without acute cardiopulmonary abnormalities or focal airspace disease . No significant discrepancy with initial interpretation by overnight radiologist. Reviewed by: Sesar Frausto MD on 07/21/2021 7:22 AM PST Approved by: Sesar Frausto MD on 07/21/2021 7:22 AM PST Station ID: [id number]
== END 2021-07-21 06:29 | disposition home or self-care (01) ==
LOC: ED 04:17
DX: B34.8 Other viral infections of unspecified site (principal); M31.30 Wegener's granulomatosis without renal involvement; D84.9 Immunodeficiency, unspecified; Z20.822 Contact with and (suspected) exposure to COVID-19
CPT/HCPCS: 0202U; 36415; 71045; 80048; 85025; 99284; A9270

== ENCOUNTER 2021-11-15 13:47 | Emergency (ER) | payer MEDICAID ==
--- NOTE | 2021-11-15 14:52 | XRAY Report ---
PROCEDURE: Chest 1 View X-Ray INDICATIONS: cough with SOA TECHNIQUE: One view of the chest was acquired. COMPARISON: 03/20/2021 FINDINGS: Surgical changes and devices: None. Lungs and pleura: No pleural effusions or pneumothorax. Lungs are clear other than minimal left bas ilar platelike atelectasis or scarring. Mediastinum: Mediastinal contours appear normal. Heart size is normal. Bones and chest wall: No suspicious bony lesions. Overlying soft tissues appear unremarkable. IMPRESSION: No acute cardiopulmonary findings Reviewed by: Ron De La Torre MD on 11/15/2021 1:51 PM [place] Approved by: Ron De La Torre MD on 11/15/2021 1:51 PM [place] Station ID: [id number]
[2021-11-15] MEDS ORDERED: DOXYCYCLINE 100 MG TABLET PO STA (17:20)
--- NOTE | 2021-11-15 17:24 | ED Physician Documentation ---
PD HPI DYSPNEA - Stated complaint Stated Complaint: COUGH, VOMITTING - Chief complaint Chief Complaint: Resp - History obtained from History obtained from: Patient - Additional information Additional information: The patient comes to the emergency department chief complaint of fevers and productive cough. He states that he has had a cough but seem to get worse last night. He has been producing greenish-yellow phlegm and heavy amounts and has had fevers up to 101 over the last week. He states he is already been tested for Covid and this is pending at this time. 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 Patient states he has a history of frequent bronchitis and pneumonia due to the Eliz's and immunosuppression and wants to make sure that this is addressed early. He denies any chest pain. He has a mild sense of dyspnea. No abdominal pain or nausea, the patient has had posttussive emesis. No back pain. He is vaccinated for COVID. Review of Systems Ten Systems: 10 systems reviewed and negative Constitutional: reports: Fever Eyes: reports: Reviewed and negative Ears: reports: Reviewed and negative Nose: reports: Reviewed and negative Throat: reports: Reviewed and negative Cardiac: reports: Reviewed and negative Respiratory: reports: Dyspnea, Cough GI: reports: Reviewed and negative : reports: Reviewed and negative Skin: reports: Reviewed and negative Musculoskeletal: reports: Reviewed and negative Neurologic: reports: Reviewed and negative Psychiatric: reports: Reviewed and negative Endocrine: reports: Reviewed and negative Immunocompromised: reports: Reviewed and negative PD PAST MEDICAL HISTORY - Past Medical History Cardiovascular: None Respiratory: Pneumonia, Other (Eliz's granulomatosis) Neuro: None Endocrine/Autoimmune: Other GI: None : None HEENT: Chronic hearing loss Psych: None Musculoskeletal: None Derm: None - Past Surgical History Past Surgical History: No - Present Medications Home Medications: Ambulatory Orders Medication Instructions Recorded Confirmed HYDROcod/ACETAM 5/325 [[place] 5/325] 1 - 2 ea PO Q6H PRN #7 tablet 09/29/20 Penicillin V Potassium 500 mg PO Q6HR #40 tablet 09/29/20 Doxycycline Hyclate 100 mg PO BID #14 12/21/20 guaiFENesin/CODEINE [Robitussin AC] 5 - 10 ml PO Q6H PRN #120 ml 12/21/20 Benzonatate [Tessalon] 200 mg PO TID PRN #30 cap 07/21/21 Doxycycline Hyclate 100 mg PO BID #20 tab 07/21/21 Doxycycline Monohydrate [Avidoxy] 100 mg PO BID #14 tablet 11/15/21 HYDROcod/ACETAM 5/325 [[place] 5/325] 1 - 2 tablet PO Q6H PRN #14 tablet 11/15/21 - Allergies Allergies/Adverse Reactions: Allergies Allergy/AdvReac Type Severity Reaction Status Date / Time No Known Drug Allergies Allergy Verified 11/15/21 14:10 - Social History Does the pt smoke?: No Smoking Status: Never smoker Does the pt drink ETOH?: No Does the pt have substance abuse?: No - Immunizations Immunizations are current?: Yes - POLST Patient has POLST: No PD ED PE NORMAL - Vitals Vital signs reviewed: Yes - General General: Alert and oriented X 3, No acute distress, Well developed/nourished - HEENT HEENT: Atraumatic, PERRL, EOMI, Moist mucous membranes - Neck Neck: Supple, no meningeal sign - Cardiac Cardiac: RRR, No murmur, Strong equal pulses - Respiratory Respiratory: No respiratory distress, Other (Mild bibasilar crackles) - Abdomen Abdomen: Soft, Non tender, Non distended - Derm Derm: Normal color, Warm and dry, No rash - Extremities Extremities: No deformity, No edema, No calf tenderness / cord - Neuro Neuro: Alert and oriented X 3, blacking machine operator 2-12 intact, Normal speech, Other (Grossly intact) - Psych Psych: Normal mood, Normal affect Results - Vitals Vitals: Oxygen O2 Source Room air - Labs Labs: Laboratory Tests 11/15/21 14:12 Coronavirus (PCR) NEGATIVE - Rads (name of study) Chest X-ray Radiology: Final report received, EMP read indepedently, See rad report PD MEDICAL DECISION MAKING - ED course Complexity details: reviewed results, re-evaluated patient, considered differential, d/w patient ED course: The patient was started on antibiotics, due to his productive cough, fevers, and underlying lung disease with immune suppression. We have discussed home management of the symptoms, as well as the usual indications for return. The patient does not display signs of sepsis and is otherwise stable, and no further emergent work-up is indicated. Departure - Departure Disposition: 01 Home, Self Care Clinical Impression: Bronchitis Wegeners granulomatosis Qualifiers: Granulomatosis renal involvement: unspecified whether renal involvement Qualified Code(s): M31.30 - Eliz's granulomatosis without renal involvement Condition: Stable Instructions: ED Upper Resp Infec Abx Tx Prescriptions: Doxycycline Monohydrate [Avidoxy] 100 mg PO BID #14 tablet HYDROcod/ACETAM 5/325 [[place] 5/325] 1 - 2 tablet PO Q6H PRN #14 tablet PRN Reason: Pain Comments: Your chest x-ray does not show any pneumonia today. Your prescriptions have been electronically transmitted to [facility] in [place]. Discharge Date/Time: 11/15/21 17:38
[2021-11-15 17:39] VITALS: BP 130/72
== END 2021-11-15 17:38 | disposition home or self-care (01) ==
LOC: ED 13:47
DX: J40 Bronchitis, not specified as acute or chronic (principal); M31.30 Wegener's granulomatosis without renal involvement; Z20.822 Contact with and (suspected) exposure to COVID-19
CPT/HCPCS: 71045; 87635; 99283; A9270

== ENCOUNTER 2021-11-22 14:48 | Emergency (ER) | payer MEDICAID ==
[2021-11-22] MEDS ORDERED: KETOROLAC 60 MG/2 ML VIAL IM STA (17:20)
[2021-11-22] MEDS ORDERED: HYDROcod/ACETAM 5/325 MG TABLET PO STA (17:20)
--- NOTE | 2021-11-22 17:23 | ED Physician Documentation ---
History of Present Illness - Stated complaint Stated Complaint: BACK PX, COUGH - Chief complaint Chief Complaint: Back Pain - History obtained from History obtained from: Patient - Additonal information Additional information: The patient comes to the emergency department with chief complaint of "my back went out". He states that about a week ago, he noticed at the end of the day that his low back was sore. He states that for 3 days he could not get off the couch. When asked if it has gotten a little better since then, the patient states "no", although he is clearly been able to get off the couch in the remaining days. The patient denies any loss of bowel or bladder control. No numbness, tingling, or weakness in his lower extremities. He does not have any back history that he knows of. No distinct injury. The patient was doing a lot of coughing, due to bronchitis and thinks that may have triggered the back injury. Review of Systems Ten Systems: 10 systems reviewed and negative Constitutional: reports: Reviewed and negative Eyes: reports: Reviewed and negative Ears: reports: Reviewed and negative Nose: reports: Reviewed and negative Throat: reports: Reviewed and negative Cardiac: reports: Reviewed and negative Respiratory: reports: Reviewed and negative GI: reports: Reviewed and negative : reports: Reviewed and negative Skin: reports: Reviewed and negative Musculoskeletal: reports: Back pain Neurologic: reports: Reviewed and negative Psychiatric: reports: Reviewed and negative Endocrine: reports: Reviewed and negative Immunocompromised: reports: Reviewed and negative PD PAST MEDICAL HISTORY - Past Medical History Cardiovascular: None Respiratory: Pneumonia, Other (Eliz's granulomatosis) Neuro: None Endocrine/Autoimmune: Other GI: None : None HEENT: Chronic hearing loss Psych: None Musculoskeletal: None Derm: None - Past Surgical History Past Surgical History: No - Present Medications Home Medications: Ambulatory Orders Medication Instructions Recorded Confirmed HYDROcod/ACETAM 5/325 [[place] 5/325] 1 - 2 ea PO Q6H PRN #7 tablet 09/29/20 Penicillin V Potassium 500 mg PO Q6HR #40 tablet 09/29/20 Doxycycline Hyclate 100 mg PO BID #14 12/21/20 guaiFENesin/CODEINE [Robitussin AC] 5 - 10 ml PO Q6H PRN #120 ml 12/21/20 Benzonatate [Tessalon] 200 mg PO TID PRN #30 cap 07/21/21 Doxycycline Hyclate 100 mg PO BID #20 tab 07/21/21 Doxycycline Monohydrate [Avidoxy] 100 mg PO BID #14 tablet 11/15/21 HYDROcod/ACETAM 5/325 [[place] 5/325] 1 - 2 tablet PO Q6H PRN #14 tablet 11/15/21 Cyclobenzaprine [Flexeril] 10 mg PO TID PRN #20 tablet 11/22/21 HYDROcod/ACETAM 5/325 [[place] 5/325] 1 - 2 tablet PO Q6H PRN #5 tablet 11/22/21 - Allergies Allergies/Adverse Reactions: Allergies Allergy/AdvReac Type Severity Reaction Status Date / Time No Known Drug Allergies Allergy Verified 11/22/21 14:54 - Social History Does the pt smoke?: No Smoking Status: Never smoker Does the pt drink ETOH?: No Does the pt have substance abuse?: No - Immunizations Immunizations are current?: Yes - POLST Patient has POLST: No PD ED PE NORMAL - Vitals Vital signs reviewed: Yes - General General: Alert and oriented X 3, No acute distress, Well developed/nourished - HEENT HEENT: Atraumatic, PERRL, EOMI, Moist mucous membranes - Neck Neck: Supple, no meningeal sign - Cardiac Cardiac: Strong equal pulses - Respiratory Respiratory: No respiratory distress - Back Back: No spinal TTP, Other (Mild tenderness to palpation over bilateral lumbar paraspinal musculature.) - Derm Derm: Normal color, Warm and dry, No rash - Extremities Extremities: No deformity, No edema, No calf tenderness / cord - Neuro Neuro: Alert and oriented X 3, lead oxide mill tender 2-12 intact, No motor deficit, No sensory deficit, Normal speech - Psych Psych: Normal mood, Normal affect Results - Vitals Vitals: Vital Signs - 24 hr 11/22/21 14:52 Temperature 36.6 C Heart Rate 109 H Respiratory 16 Rate Blood Pressure 163/104 H O2 Saturation 97 Oxygen O2 Source Room air PD MEDICAL DECISION MAKING - ED course Complexity details: reviewed old records, reviewed results, re-evaluated patient, considered differential, d/w patient ED course: The patient was treated symptomatically with Toradol and hydrocodone and sent for x-ray series of his lumbar spine, Which were unremarkable. We have discussed symptomatic management at home, as well as the usual indications for return. Departure - Departure Disposition: Home, Self Care Clinical Impression: Lumbar strain Qualifiers: Encounter type: initial encounter Qualified Code(s): S39.012A - Strain of muscle, fascia and tendon of lower back, initial encounter Condition: Stable Instructions: ED Sprain Strain Lumbar Prescriptions: Cyclobenzaprine [Flexeril] 10 mg PO TID PRN #20 tablet PRN Reason: Spasms HYDROcod/ACETAM 5/325 [[place] 5/325] 1 - 2 tablet PO Q6H PRN #5 tablet PRN Reason: Pain Comments: Your x-rays look very good. You most likely have some muscle spasm in your back. Please take the medication prescribed as needed. If you are not feeling better in the next couple of weeks, you will need to follow-up with your primary doctor to discuss further management. Your prescriptions have been electronically transmitted to [facility] in [place].
--- NOTE | 2021-11-22 17:45 | XRAY Report ---
PROCEDURE: Lumbar Spine 2 View INDICATIONS: Injury/pain TECHNIQUE: 2 views of the lumbar spine were acquired. COMPARISON: None. FINDINGS: There are 5 nonrib-bearing lumbar-type vertebral bodies of normal height and alignment. No fracture i dentified. Spondylitic changes from L3 L4 through L5 S1. IMPRESSION: No acute finding. Reviewed by: Fernando Malik MD on 11/22/2021 5:44 PM PDT Approved by: Fernando Malik MD on 11/22/2021 5:44 PM PDT Station ID: [id number]
[2021-11-22 17:49] VITALS: BP 164/90
== END 2021-11-22 17:54 | disposition home or self-care (01) ==
LOC: ED 14:48
DX: S39.012A Strain of muscle, fascia and tendon of lower back, initial encounter (principal); X58.XXXA Exposure to other specified factors, initial encounter
CPT/HCPCS: 72100; 96372; 99283; A9270

== ENCOUNTER 2022-03-28 19:28 | Emergency (ER) | payer MEDICAID ==
[2022-03-28] MEDS ORDERED: SODIUM CHLORIDE 0.9% 1,000 ML IV STA (22:41)
[2022-03-28 23:00] LABS: BASOPHILS % (AUTO) 0.2 %; EOSINOPHILS % (AUTO) 0.3 %; HGB - HEMOGLOBIN 14.8 g/dL (14.0-18.0); LYMPHOCYTES # (AUTO) 0.9 10^3/uL (1.5-3.5); LYMPHOCYTES % (AUTO) 6.8 %; MEAN CORPUSCULAR HEMOGLOBIN 30.1 pg (27.0-31.0); MEAN CORPUSCULAR HGB CONC 33.6 g/dL (32.0-36.0); MEAN CORPUSCULAR VOLUME 89.4 fL (80.0-94.0); MEAN PLATELET VOLUME 10.3 fL (7.4-11.4); MONOCYTES # (AUTO) 0.7 10^3/uL (0.0-1.0); MONOCYTES % (AUTO) 5.2 %; NEUTROPHILS # (AUTO) 11.6 10^3/uL (1.5-6.6); PLT - PLATELET COUNT 311 10^3/uL (130-450); RED BLOOD COUNT 4.92 10^6/uL (4.70-6.10); RED CELL DISTRIBUTION WIDTH 12.2 % (12.0-15.0); WHITE BLOOD COUNT 13.3 x10^3/uL (4.8-10.8)
[2022-03-28 23:02] VITALS: BP 129/77
[2022-03-28 23:12] LABS: ALBUMIN 3.6 g/dL (3.2-5.5); BILIRUBIN,TOTAL 0.5 mg/dL (0.2-1.0); CALCIUM 8.8 mg/dL (8.5-10.3); CREATININE 0.8 mg/dL (0.6-1.2); POTASSIUM 3.1 mmol/L (3.5-5.0); TOTAL PROTEIN 7.2 g/dL (6.7-8.2)
[2022-03-28] MEDS ORDERED: POTASSIUM CHLORIDE 20 MEQ TABLET PO STA (23:30)
--- NOTE | 2022-03-28 23:41 | XRAY Report ---
PROCEDURE: Chest 1 View X-Ray INDICATIONS: SOA TECHNIQUE: One view of the chest was acquired. COMPARISON: 11/15/2021, 07/21/2021 FINDINGS: Surgical changes and devices: None. Lungs and pleura: No pleural effusions or pneumothorax. Lungs are clear. There is slight elevation of the left hemidiaphragm. Mediastinum: Mediastinal contours appear normal. Heart size is normal. Bones and chest wall: No suspicious bony lesions. Overlying soft tissues appear unremarkable. IMPRESSION: 1. No acute cardiopulmonary disease. Reviewed by: Allen Wong MD on 03/28/2022 11:40 PM PDT Approved by: Allen Wong MD on 03/28/2022 11:40 PM PDT Station ID: [id number]
--- NOTE | 2022-03-29 00:26 | ED Physician Documentation ---
History of Present Illness - Stated complaint Stated Complaint: C+,FEVER,FATIGUE,NOT EATING - Chief complaint Chief Complaint: General - History obtained from History obtained from: Patient - Additonal information Additional information: Patient is a 46-year-old male with a history of Eliz's granulomatosis Presenting for evaluation of 1 week history of fever and feeling fatigued. He did take a home COVID test that was positive yesterday. 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 He normally gets IVIG treatments every month but was not able to get it this past month. He denies chest pain, abdominal pain, vomiting or diarrhea. He reports having some poor p.o. intake due to feeling weak but denies syncope or any falls. Review of Systems Constitutional: reports: Fever Nose: denies: Congestion Cardiac: denies: Chest pain / pressure (Nonproductive) Respiratory: reports: Dyspnea, Cough GI: denies: Abdominal Pain, Vomiting : denies: Dysuria Musculoskeletal: denies: Back pain Neurologic: reports: Generalized weakness. denies: Headache PD PAST MEDICAL HISTORY - Past Medical History Cardiovascular: None Respiratory: Pneumonia, Other Neuro: None Endocrine/Autoimmune: Other GI: None : None HEENT: Chronic hearing loss Psych: None Musculoskeletal: None Derm: None - Past Surgical History Past Surgical History: No - Present Medications Home Medications: Ambulatory Orders Medication Instructions Recorded Confirmed HYDROcod/ACETAM 5/325 [[place] 5/325] 1 - 2 ea PO Q6H PRN #7 tablet 09/29/20 Penicillin V Potassium 500 mg PO Q6HR #40 tablet 09/29/20 Doxycycline Hyclate 100 mg PO BID #14 12/21/20 guaiFENesin/CODEINE [Robitussin AC] 5 - 10 ml PO Q6H PRN #120 ml 12/21/20 Benzonatate [Tessalon] 200 mg PO TID PRN #30 cap 07/21/21 Doxycycline Hyclate 100 mg PO BID #20 tab 07/21/21 Doxycycline Monohydrate [Avidoxy] 100 mg PO BID #14 tablet 11/15/21 HYDROcod/ACETAM 5/325 [[place] 5/325] 1 - 2 tablet PO Q6H PRN #14 tablet 11/15/21 Cyclobenzaprine [Flexeril] 10 mg PO TID PRN #20 tablet 11/22/21 HYDROcod/ACETAM 5/325 [[place] 5/325] 1 - 2 tablet PO Q6H PRN #5 tablet 11/22/21 - Allergies Allergies/Adverse Reactions: Allergies Allergy/AdvReac Type Severity Reaction Status Date / Time No Known Drug Allergies Allergy Verified 03/28/22 19:40 - Social History Does the pt smoke?: No Smoking Status: Never smoker Does the pt drink ETOH?: No Does the pt have substance abuse?: No - Immunizations Immunizations are current?: Yes - POLST Patient has POLST: No PD ED PE NORMAL - General General: Alert and oriented X 3, No acute distress, Well developed/nourished - HEENT HEENT: Atraumatic, Moist mucous membranes - Neck Neck: Supple, no meningeal sign - Cardiac Cardiac: RRR, No murmur, Strong equal pulses - Respiratory Respiratory: No respiratory distress, Clear bilaterally - Abdomen Abdomen: Normal bowel sounds, Soft, Non tender, Non distended - Derm Derm: Warm and dry - Extremities Extremities: No edema - Neuro Neuro: Normal speech, Other (Normal gait) Results - Vitals Vitals: Vital Signs - 24 hr 03/28/22 03/28/22 03/28/22 19:40 21:43 23:00 Temperature 36.5 C Heart Rate 100 98 98 Respiratory 16 26 H 25 H Rate Blood Pressure 122/80 140/84 H 129/77 O2 Saturation 98 97 99 Oxygen O2 Source Room air - Labs Labs: Laboratory Tests 03/28/22 03/28/22 22:50 22:50 WBC 13.3 H RBC 4.92 Hgb 14.8 Hct 44.0 MCV 89.4 MCH 30.1 MCHC 33.6 RDW 12.2 Plt Count 311 MPV 10.3 Neut # (Auto) 11.6 H Lymph # (Auto) 0.9 L [place] # (Auto) 0.7 Eos # (Auto) 0.0 Baso # (Auto) 0.0 Absolute Nucleated RBC 0.00 Nucleated RBC % 0.0 Sodium 138 Potassium 3.1 L Chloride 99 L Carbon Dioxide 25 Anion Gap 14.0 H BUN 14 Creatinine 0.8 Estimated GFR (MDRD) 104 Glucose 150 H Calcium 8.8 Total Bilirubin 0.5 AST 17 ALT 21 Alkaline Phosphatase 75 Total Protein 7.2 Albumin 3.6 Globulin 3.6 Albumin/Globulin Ratio 1.0 PD MEDICAL DECISION MAKING - ED course Complexity details: reviewed results, re-evaluated patient, d/w patient, d/w family ED course: Patient presenting with 1 week history of fever, fatigue, shortness of breath and cough. Recent positive home COVID test. Vital signs here are stable. Labs reviewed without significant abnormalities. Chest x-ray is clear with no signs of infiltrate. Patient feeling better after IV fluids. He is not eligible for antiviral treatment given duration of his symptoms. Patient counseled that his symptoms are likely still related to COVID and that he should have close follow- up with his primary care doctor. He is advised on return precautions. Departure - Departure Disposition: 01 Home, Self Care Clinical Impression: COVID-19 Condition: Stable Instructions: COVID-19 [facility] Department Statement Comments: You recently tested positive for COVID-19 and Your evaluated for your fever and feeling weak. Your vital signs here been stable and your labs do not show any significant abnormalities. Your chest x-ray is clear and there are no signs of pneumonia. Your symptoms are likely related to the COVID-19 infection.Please continue to stay hydrated, get plenty of rest, use ibuprofen or acetaminophen as needed for fevers or pain. If you have any worsening shortness of breath then please return to the emergency department. Otherwise please follow-up with your primary care doctor. Discharge Date/Time: 03/29/22 00:33
== END 2022-03-29 00:33 | disposition home or self-care (01) ==
LOC: ED 19:28
DX: U07.1 COVID-19 (principal)
CPT/HCPCS: 36415; 71045; 80053; 85025; 96360; 99283; 99284; A9270

== ENCOUNTER 2023-01-27 16:21 | Emergency (ER) | payer MEDICAID ==
[2023-01-27 16:47] VITALS: BP 116/65
--- NOTE | 2023-01-27 17:14 | XRAY Report ---
PROCEDURE: Chest 2 View X-Ray INDICATIONS: Productive cough with SOA. TECHNIQUE: 2 views of the chest were acquired. COMPARISON: Chest x-ray 03/28/2022. FINDINGS: Surgical changes and devices: None. Lungs and pleura: Mild scattered appearance of increased interstitial patchy opacities. Mediastinum: Mediastinal contours appear normal. Heart size is normal. Bones and chest wall: No suspicious bony lesions. Overlying soft tissues appear unremarkable. IMPRESSION: Increased bilateral interstitial patchy opacities suggestive of pneumonia. Reviewed by: Amy Rowe MD on 01/27/2023 5:13 PM PDT Approved by: Amy Rowe MD on 01/27/2023 5:13 PM PDT Station ID: [id number]
[2023-01-27] MEDS ORDERED: AZITHROMYCIN 250 MG TABLET PO STA (17:47)
[2023-01-27] MEDS ORDERED: AMOXICILLIN 250 MG CAPSULE PO STA (17:47)
--- NOTE | 2023-01-27 17:49 | ED Physician Documentation ---
PD HPI URI - Stated complaint Stated Complaint: SOA - Chief complaint Chief Complaint: Resp - History obtained from History obtained from: Patient - Additional information Additional information: 47-year-old gentleman with history of Eliz's granulomatosis and history of necrotizing pneumonia as well as recurrent pneumonias after that presents having been sick for about a week with COVID cough productive of green sputum, fevers and chills at the beginning all those that has have gotten better, and shortness of breath. He was seen here a week ago and diagnosed with viral bronchitis with positive [employer] panel for enterovirus/rhinovirus but has not improved. PD PAST MEDICAL HISTORY - Past Medical History Cardiovascular: None Respiratory: Pneumonia, Other Neuro: None Endocrine/Autoimmune: Other GI: None : None HEENT: Chronic hearing loss Psych: None Musculoskeletal: None Derm: None - Past Surgical History Past Surgical History: No - Present Medications Home Medications: Ambulatory Orders Medication Instructions Recorded Confirmed HYDROcod/ACETAM 5/325 [[place] 5/325] 1 - 2 ea PO Q6H PRN #7 tablet 09/29/20 Penicillin V Potassium 500 mg PO Q6HR #40 tablet 09/29/20 Doxycycline Hyclate 100 mg PO BID #14 12/21/20 guaiFENesin/CODEINE [Robitussin AC] 5 - 10 ml PO Q6H PRN #120 ml 12/21/20 Benzonatate [Tessalon] 200 mg PO TID PRN #30 cap 07/21/21 Doxycycline Hyclate 100 mg PO BID #20 tab 07/21/21 Doxycycline Monohydrate [Avidoxy] 100 mg PO BID #14 tablet 11/15/21 HYDROcod/ACETAM 5/325 [[place] 5/325] 1 - 2 tablet PO Q6H PRN #14 tablet 11/15/21 Cyclobenzaprine [Flexeril] 10 mg PO TID PRN #20 tablet 11/22/21 HYDROcod/ACETAM 5/325 [[place] 5/325] 1 - 2 tablet PO Q6H PRN #5 tablet 11/22/21 Codeine Phosphate/Guaifenesin 5 - 10 ml PO Q6HR PRN #100 ml 01/21/23 [Guaifen-Codeine 100-10 mg/5 ml] Albuterol Sulf [Ventolin Hfa 1 - 2 puffs INH Q4HR PRN #1 each 01/27/23 Inhaler] Amoxicillin 1,000 mg PO TID #30 cap 01/27/23 Azithromycin [Zithromax] 1 tab PO DAILY #4 tab 01/27/23 - Allergies Allergies/Adverse Reactions: Allergies Allergy/AdvReac Type Severity Reaction Status Date / Time No Known Drug Allergies Allergy Verified 01/27/23 16:46 - Social History Does the pt smoke?: No Smoking Status: Never smoker Does the pt drink ETOH?: No Does the pt have substance abuse?: No - Immunizations Immunizations are current?: Yes - POLST Patient has POLST: No PD ED PE NORMAL - Vitals Vital signs reviewed: Yes - General General: Alert and oriented X 3, No acute distress - Cardiac Cardiac: RRR, No murmur - Respiratory Respiratory: Other (Rhonchorous throughout) - Neuro Neuro: Alert and oriented X 3, Normal speech Results - Vitals Vitals: Vital Signs - 24 hr 01/27/23 16:40 Temperature 36.5 C Heart Rate 87 Respiratory 20 Rate Blood Pressure 116/65 O2 Saturation 95 Oxygen O2 Source Room air - Rads (name of study) 2 view chest x-ray shows mild multifocal pneumonia Relevant Findings:: Final report received, EMP independent interpretation of test PD Medical Decision Making - ED course ED course: 47-year-old gentleman with Eliz's presents with persistent shortness of breath and productive cough with positive chest x-ray. Departure - Departure Disposition: 01 Home, Self Care Clinical Impression: Pneumonia Qualifiers: Pneumonia type: due to unspecified organism Laterality: unspecified laterality Lung location: unspecified part of lung Qualified Code(s): J18.9 - Pneumonia, unspecified organism Condition: Stable Record reviewed to determine appropriate education?: Yes Instructions: ED Pneumonia Adult Prescriptions: Albuterol Sulf [Ventolin Hfa Inhaler] 1 - 2 puffs INH Q4HR PRN #1 each PRN Reason: Shortness Of Air/Wheezing Amoxicillin 1,000 mg PO TID #30 cap Azithromycin [Zithromax] 1 tab PO DAILY #4 tab Comments: Call your doctor to arrange a follow-up appointment, make the next available appointment. In the interim, return anytime if worse or if new symptoms develop.
== END 2023-01-27 18:13 | disposition home or self-care (01) ==
LOC: ED 16:21
DX: J18.9 Pneumonia, unspecified organism (principal)
CPT/HCPCS: 71046; 99283; 99284; A9270

== ENCOUNTER 2023-02-03 09:03 | Outpatient (CLI) | payer OTHER, MEDICAID ==
--- NOTE | 2023-02-03 11:15 | XRAY Report ---
PROCEDURE: Chest 2 View X-Ray INDICATIONS: DYSPNEA ON EXERTION/PNEUMONIA TECHNIQUE: 2 views of the chest were acquired. COMPARISON: 01/27/2023 FINDINGS: Surgical changes and devices: None. Lungs and pleura: Decrease in bilateral airspace opacities. Mediastinum: Mediastinal contours appear normal. Heart size is normal. Bones and chest wall: No suspicious bony lesions. Overlying soft tissues appear unremarkable. IMPRESSION: Decrease in bilateral airspace opacities, suggestive of resolving pneumonia. Reviewed by: Endy Robledo on 02/03/2023 10:13 AM ALLEN Approved by: Endy Robledo on 02/03/2023 10:13 AM ALLEN Station ID: [id number]
[2023-02-03 14:57] LABS: BASOPHILS % (AUTO) 0.2 %; EOSINOPHILS # (AUTO) 0.2 10^3/uL (0.0-0.7); EOSINOPHILS % (AUTO) 1.9 %; HCT - HEMATOCRIT 47.2 % (42.0-52.0); HGB - HEMOGLOBIN 14.7 g/dL (14.0-18.0); LYMPHOCYTES % (AUTO) 11.5 %; MEAN CORPUSCULAR HEMOGLOBIN 28.9 pg (27.0-31.0); MEAN CORPUSCULAR HGB CONC 31.1 g/dL (32.0-36.0); MEAN CORPUSCULAR VOLUME 92.9 fL (80.0-94.0); MEAN PLATELET VOLUME 9.8 fL (7.4-11.4); MONOCYTES # (AUTO) 0.5 10^3/uL (0.0-1.0); MONOCYTES % (AUTO) 5.7 %; NEUTROPHILS # (AUTO) 6.9 10^3/uL (1.5-6.6); NEUTROPHILS % (AUTO) 80.4 %; PLT - PLATELET COUNT 547 10^3/uL (130-450); RED BLOOD COUNT 5.08 10^6/uL (4.70-6.10); RED CELL DISTRIBUTION WIDTH 12.5 % (12.0-15.0); WHITE BLOOD COUNT 8.6 x10^3/uL (4.8-10.8)
[2023-02-03 15:53] LABS: ALBUMIN 3.6 g/dL (3.2-5.5); ALBUMIN/GLOBULIN RATIO 0.9 (1.0-2.2); BILIRUBIN,TOTAL 0.4 mg/dL (0.2-1.0); CALCIUM 9.1 mg/dL (8.5-10.3); CREATININE 0.7 mg/dL (0.6-1.2); POTASSIUM 3.9 mmol/L (3.5-5.0); TOTAL PROTEIN 7.7 g/dL (6.7-8.2)
== END 2023-02-03 09:04 | disposition home or self-care (01) ==
LOC: DI.S 09:03
PROVIDERS: ATTEND Registered Nurse
DX: R20.2 Paresthesia of skin (principal); D84.9 Immunodeficiency, unspecified; J18.9 Pneumonia, unspecified organism; R06.09 Other forms of dyspnea
CPT/HCPCS: 36415; 80053; 85025; 86140

== ENCOUNTER 2023-02-15 08:00 | Outpatient (CLI) | payer OTHER, MEDICAID ==
--- NOTE | 2023-02-15 15:21 | XRAY Report ---
PROCEDURE: Chest 2 View X-Ray INDICATIONS: PNEUMONIA TECHNIQUE: 2 views of the chest were acquired. COMPARISON: None. FINDINGS: Surgical changes and devices: None. Lungs and pleura: No pleural effusions or pneumothorax. Lungs are clear than platelike atelectasis or scarring left lung base. Mediastinum: Mediastinal contours appear normal. Heart size is normal. Bones and chest wall: No suspicious bony lesions. Overlying soft tissues appear unremarkable. IMPRESSION: No acute cardiopulmonary process. Platelike atelectasis or scarring left lung base Reviewed by: Ron De La Torre MD on 02/15/2023 2:19 PM AKDT Approved by: Ron De La Torre MD on 02/15/2023 2:19 PM AKDT Station ID: [id number]
== END 2023-02-15 23:59 | disposition home or self-care (01) ==
LOC: DI.S 08:00
PROVIDERS: ATTEND Nurse Practitioner
DX: J18.9 Pneumonia, unspecified organism (principal)

== ENCOUNTER 2023-03-19 15:35 | Outpatient (CLI) | payer OTHER, MEDICAID | END 2023-03-19 23:59 | disposition critical access hospital (66) | LOC: EMS 15:35 | DX: T18.128A Food in esophagus causing other injury, initial encounter (principal) | CPT/HCPCS: A0425; A0429 ==

== ENCOUNTER 2023-03-19 16:00 | Emergency (ER) | payer OTHER, MEDICAID ==
--- NOTE | 2023-03-19 16:04 | ED Physician Documentation ---
History of Present Illness - Stated complaint Stated Complaint: CHOKING - History obtained from History obtained from: Patient, EMS - Additonal information Additional information: He was out eating Syrian food and a piece of chicken got stuck in his esophagus. Never had any airway trouble. On the way here he vomited it up. There was some bright red blood with the vomit which seems to have abated now. PD PAST MEDICAL HISTORY - Present Medications Home Medications: Ambulatory Orders Medication Instructions Recorded Confirmed HYDROcod/ACETAM 5/325 [[place] 5/325] 1 - 2 ea PO Q6H PRN #7 tablet 09/29/20 Penicillin V Potassium 500 mg PO Q6HR #40 tablet 09/29/20 Doxycycline Hyclate 100 mg PO BID #14 12/21/20 guaiFENesin/CODEINE [Robitussin AC] 5 - 10 ml PO Q6H PRN #120 ml 12/21/20 Benzonatate [Tessalon] 200 mg PO TID PRN #30 cap 07/21/21 Doxycycline Hyclate 100 mg PO BID #20 tab 07/21/21 Doxycycline Monohydrate [Avidoxy] 100 mg PO BID #14 tablet 11/15/21 HYDROcod/ACETAM 5/325 [[place] 5/325] 1 - 2 tablet PO Q6H PRN #14 tablet 11/15/21 Cyclobenzaprine [Flexeril] 10 mg PO TID PRN #20 tablet 11/22/21 HYDROcod/ACETAM 5/325 [[place] 5/325] 1 - 2 tablet PO Q6H PRN #5 tablet 11/22/21 Codeine Phosphate/Guaifenesin 5 - 10 ml PO Q6HR PRN #100 ml 01/21/23 [Guaifen-Codeine 100-10 mg/5 ml] Albuterol Sulf [Ventolin Hfa 1 - 2 puffs INH Q4HR PRN #1 each 01/27/23 Inhaler] Amoxicillin 1,000 mg PO TID #30 cap 01/27/23 Azithromycin [Zithromax] 1 tab PO DAILY #4 tab 01/27/23 - Allergies Allergies/Adverse Reactions: Allergies Allergy/AdvReac Type Severity Reaction Status Date / Time No Known Drug Allergies Allergy Verified 01/27/23 16:46 PD ED PE NORMAL - Vitals Vital signs reviewed: Yes - General General: Alert and oriented X 3, No acute distress - HEENT HEENT: Other (Normal phonation, handling his secretions.) - Cardiac Cardiac: RRR, No murmur - Respiratory Respiratory: No respiratory distress, Clear bilaterally - Abdomen Abdomen: Non tender - Neuro Neuro: Alert and oriented X 3, Normal speech Results - Vitals Vitals: Vital Signs - 24 hr 03/19/23 16:05 Temperature 37.0 C Heart Rate 96 Respiratory 16 Rate Blood Pressure 128/92 H O2 Saturation 100 Oxygen O2 Source Room air PD Medical Decision Making - ED course ED course: 47-year-old gentleman with a esophageal food impaction that resolved on the way here. There was some bloody emesis but was able to tolerate liquids here without issue. Advised to do a Liquid/soft diet for the next couple of days to help heal and follow-up with your doctor for consideration for referral for upper endoscopy. Departure - Departure Disposition: 01 Home, Self Care Clinical Impression: Esophageal obstruction due to food impaction Condition: Good Record reviewed to determine appropriate education?: Yes Instructions: ED Foreign Body Esophageal Rslv Comments: You should do liquid/very soft diet for the next couple of days to allow your esophagus to heal. Return if you worsen. Follow-up with your primary care physician to discuss this visit and they may want to consider sending you for an upper endoscopy with a specialist.
[2023-03-19 16:10] VITALS: BP 128/92
--- OUTSIDE RECORDS SUMMARY | 2023-03-19 16:23 | EXTERNAL MEDICAL SUMMARY RPT | Continuity of Care Document ---
Author Name Unknown Address [address] [place] [address] Phone Organization [facility] Address [address] [place] [id number] Phone Care Team Providers Care Wax Engraver Name Role Phone Viraj Steven, Melinda Unavailable Unavailable Problems date description facility 2023-02-02 00:00 No current problems or disabili ty - unknown [facility] Social History date description facility 2023-02-02 00:00 Unknown if ever smoked [facility]
== END 2023-03-19 16:21 | disposition home or self-care (01) ==
LOC: EDUNIT# → ED 16:00
DX: K22.2 Esophageal obstruction (principal)
CPT/HCPCS: 99282; 99283

== ENCOUNTER 2023-05-03 07:13 | Outpatient (CLI) | payer OTHER ==
[2023-05-03 14:29] LABS: BASOPHILS % (AUTO) 0.3 %; EOSINOPHILS # (AUTO) 0.3 10^3/uL (0.0-0.7); EOSINOPHILS % (AUTO) 4.5 %; HCT - HEMATOCRIT 47.4 % (42.0-52.0); HGB - HEMOGLOBIN 15.4 g/dL (14.0-18.0); LYMPHOCYTES # (AUTO) 0.9 10^3/uL (1.5-3.5); LYMPHOCYTES % (AUTO) 15.8 %; MEAN CORPUSCULAR HGB CONC 32.5 g/dL (32.0-36.0); MEAN CORPUSCULAR VOLUME 92.4 fL (80.0-94.0); MEAN PLATELET VOLUME 10.7 fL (7.4-11.4); MONOCYTES # (AUTO) 0.5 10^3/uL (0.0-1.0); MONOCYTES % (AUTO) 8.3 %; NEUTROPHILS # (AUTO) 4.1 10^3/uL (1.5-6.6); NEUTROPHILS % (AUTO) 70.8 %; PLT - PLATELET COUNT 337 10^3/uL (130-450); RED BLOOD COUNT 5.13 10^6/uL (4.70-6.10); RED CELL DISTRIBUTION WIDTH 12.4 % (12.0-15.0); WHITE BLOOD COUNT 5.8 x10^3/uL (4.8-10.8)
[2023-05-03 14:42] LABS: ALBUMIN 4.2 g/dL (3.2-5.5); ALBUMIN/GLOBULIN RATIO 1.5 (1.0-2.2); ALKALINE PHOSPHATASE 84 IU/L (42-121); ALT ALANINE AMINOTRANSFERASE 18 IU/L (10-60); AST ASPARTATE AMINOTRANSFERASE 17 IU/L (10-42); BILIRUBIN,TOTAL 0.3 mg/dL (0.2-1.0); BUN - BLOOD UREA NITROGEN 11 mg/dL (6-20); CALCIUM 9.1 mg/dL (8.5-10.3); CARBON DIOXIDE - CO2 28 mmol/L (21-32); CHLORIDE 105 mmol/L (101-111); CHOL/HDL RATIO 4.4 (<5.0); CHOLESTEROL 207 mg/dL; CREATININE 0.7 mg/dL (0.6-1.3); GFR - MDRD 120 (>89); GLUCOSE 100 mg/dL (74-104); HDL CHOLESTEROL 47 mg/dL; LDL CHOLESTEROL,CALCULATED 128 mg/dL; LDL/HDL RATIO 2.7 (<3.6); POTASSIUM 3.9 mmol/L (3.5-4.5); SODIUM 138 mmol/L (135-145); TRIGLYCERIDES 159 mg/dL (48-352); VLDL CHOLESTEROL 32 mg/dL
[2023-05-03 14:54] LABS: THYROID STIMULATING HORMONE 2.38 uIU/mL (0.34-5.60)
== END 2023-05-03 07:14 | disposition home or self-care (01) ==
LOC: LAB.S 07:13
PROVIDERS: ATTEND Nurse Practitioner Acute Care
DX: Z13.228 Encounter for screening for other metabolic disorders (principal); Z13.220 Encounter for screening for lipoid disorders; Z13.29 Encounter for screening for other suspected endocrine disorder; Z13.0 Encounter for screening for diseases of the blood and blood-forming organs and certain disorders involving the immune mechanism
CPT/HCPCS: 36415; 80053; 80061; 83721; 84443; 85025

== ENCOUNTER 2023-09-11 19:53 | Emergency (ER) | payer MEDICAID, OTHER ==
[2023-09-11 21:08] LABS: B. PARAPERTUSSIS- RESP PCR PAN NOT DETECTED; B. PERTUSSIS- RESP PCR PANEL NOT DETECTED; C. PNEUMONIAE- RESP PCR PANEL NOT DETECTED; CORONAVIRUS 229E-RESP PCR NOT DETECTED; CORONAVIRUS HKU1-RESP PCR NOT DETECTED; CORONAVIRUS NL63-RESP PCR NOT DETECTED; CORONAVIRUS OC43-RESP PCR NOT DETECTED; HUMAN METAPNEUMOVIRUS NOT DETECTED; INFLUENZA A- RESP PCR PANEL NOT DETECTED; INFLUENZA B - RESP PCR PANEL NOT DETECTED; M. PNEUMONIAE- RESP PCR PANEL NOT DETECTED; PARAINFLUENZA VIRUS 1 NOT DETECTED; PARAINFLUENZA VIRUS 2 NOT DETECTED; PARAINFLUENZA VIRUS 3 NOT DETECTED; PARAINFLUENZA VIRUS 4 NOT DETECTED; RHINOVIRUS/ENTEROVIRUS DETECTED; RSV- RESP PCR PANEL NOT DETECTED; SARS-CoV-2 -RESP PCR PANEL NOT DETECTED
[2023-09-11 22:10] VITALS: BP 125/76
--- NOTE | 2023-09-11 23:22 | XRAY Report ---
PROCEDURE: Chest 1V INDICATIONS: cough/fever/immunosuppressants TECHNIQUE: One view of the chest was acquired. COMPARISON: Chest x-ray 02/15/2023. FINDINGS: Surgical changes and devices: None. Lungs and pleura: No pleural effusions or pneumothorax. Lungs are clear. Mediastinum: Mediastinal contours appear normal. Heart size is normal. Bones and chest wall: No suspicious bony lesions. Overlying soft tissues appear unremarkable. IMPRESSION: No acute cardiopulmonary process. Reviewed by: Cullen Albarran MD on 09/11/2023 11:20 PM PST Approved by: Cullen Albarran MD on 09/11/2023 11:20 PM PST Station ID: [id number]
--- NOTE | 2023-09-11 23:29 | ED Physician Documentation ---
History of Present Illness - Stated complaint Stated Complaint: FEVER - Chief complaint Chief Complaint: General - History obtained from History obtained from: Patient - Additonal information Additional information: The patient comes to the emergency department chief complaint of fever and cough. He states that his kids were diagnosed with COVID at home, but he had a negative test. He denies any new shortness of breath. He is on Gammagard for Eliz's granulomatosis and just had an infusion last week. He states he gets an infusion about once a month. He denies any sputum production. No sore throat. No nasal congestion. His temperatures have been up to 101 at home. His significant other voices concern that the patient has had pneumonia before. No other complaints at this time. PD PAST MEDICAL HISTORY - Past Medical History Past Medical History: Yes Cardiovascular: None Respiratory: Pneumonia, Other Neuro: None Endocrine/Autoimmune: Other GI: None : None HEENT: Chronic hearing loss Psych: None Musculoskeletal: None Derm: None - Past Surgical History Past Surgical History: No - Present Medications Home Medications: Ambulatory Orders Medication Instructions Recorded Confirmed HYDROcod/ACETAM 5/325 [[place] 5/325] 1 - 2 ea PO Q6H PRN #7 tablet 09/29/20 Penicillin V Potassium 500 mg PO Q6HR #40 tablet 09/29/20 Doxycycline Hyclate 100 mg PO BID #14 12/21/20 guaiFENesin/CODEINE [Robitussin AC] 5 - 10 ml PO Q6H PRN #120 ml 12/21/20 Benzonatate [Tessalon] 200 mg PO TID PRN #30 cap 07/21/21 Doxycycline Hyclate 100 mg PO BID #20 tab 07/21/21 Doxycycline Monohydrate [Avidoxy] 100 mg PO BID #14 tablet 11/15/21 HYDROcod/ACETAM 5/325 [[place] 5/325] 1 - 2 tablet PO Q6H PRN #14 tablet 11/15/21 Cyclobenzaprine [Flexeril] 10 mg PO TID PRN #20 tablet 11/22/21 HYDROcod/ACETAM 5/325 [[place] 5/325] 1 - 2 tablet PO Q6H PRN #5 tablet 11/22/21 Codeine Phosphate/Guaifenesin 5 - 10 ml PO Q6HR PRN #100 ml 01/21/23 [Guaifen-Codeine 100-10 mg/5 ml] Albuterol Sulf [Ventolin Hfa 1 - 2 puffs INH Q4HR PRN #1 each 01/27/23 Inhaler] Amoxicillin 1,000 mg PO TID #30 cap 01/27/23 Azithromycin [Zithromax] 1 tab PO DAILY #4 tab 01/27/23 - Allergies Allergies/Adverse Reactions: Allergies Allergy/AdvReac Type Severity Reaction Status Date / Time No Known Drug Allergies Allergy Verified 09/11/23 20:05 - Social History Does the pt smoke?: No Smoking Status: Never smoker Does the pt drink ETOH?: No Does the pt have substance abuse?: No - Immunizations Immunizations are current?: Yes - POLST Patient has POLST: No PD ED PE NORMAL - Vitals Vital signs reviewed: Yes - General General: Alert and oriented X 3, No acute distress, Well developed/nourished - HEENT HEENT: Atraumatic, PERRL, EOMI, Moist mucous membranes - Neck Neck: Supple, no meningeal sign - Cardiac Cardiac: RRR, No murmur - Respiratory Respiratory: No respiratory distress, Clear bilaterally - Abdomen Abdomen: Soft, Non tender, Non distended - Derm Derm: Normal color, Warm and dry, No rash - Extremities Extremities: No deformity, No edema - Neuro Neuro: Alert and oriented X 3 - Psych Psych: Normal mood, Normal affect Results - Vitals Vitals: Oxygen O2 Source Room air - Labs Labs: Laboratory Tests 09/11/23 20:10 Nasal Adenovirus (PCR) NOT DETECTED Nasal B. parapertussis DNA (PCR) NOT DETECTED Nasal Coronavir 229E PCR NOT DETECTED Nasal Coronavir HKU1 PCR NOT DETECTED Nasal Coronavir NL63 PCR NOT DETECTED Nasal Coronavir OC43 PCR NOT DETECTED Nasal Enterovir/Rhinovir PCR DETECTED A Nasal Influenza B PCR NOT DETECTED Nasal Influenza A PCR NOT DETECTED Nasal Parainfluen 1 PCR NOT DETECTED Nasal Parainfluen 2 PCR NOT DETECTED Nasal Parainfluen 3 PCR NOT DETECTED Nasal Parainfluen 4 PCR NOT DETECTED Nasal RSV (PCR) NOT DETECTED Nasal B.pertussis DNA PCR NOT DETECTED Nasal C.pneumoniae (PCR) NOT DETECTED Aiden Human Metapneumo PCR NOT DETECTED Nasal M.pneumoniae (PCR) NOT DETECTED Nasal SARS-CoV-2 (PCR) NOT DETECTED PD Medical Decision Making - ED course Complexity details: reviewed results, re-evaluated patient, considered differential, d/w patient ED course: The patient was worked up with a chest x-ray which was unremarkable and a respiratory PCR panel which was positive for rhinovirus. I discussed with the patient and family that he has a viral illness which is expected to pass on its own. We have discussed symptomatic management at home as well as usual indications for return. Departure - Departure Disposition: 01 Home, Self Care Clinical Impression: Rhinovirus infection Condition: Stable Instructions: ED Viral Syndrome Comments: Your viral swab was positive for rhinovirus tonight. This is consistent with the symptoms that you are having of fever, body aches, and cough. Your chest x- ray looks fantastic and was read by the radiologist as negative. Your oxygen saturation is good, your respiratory rate is normal, and your lungs are also clear on exam. These are all reassuring signs. As far as the rhinovirus, this is a common viral infection that causes upper respiratory or flulike symptoms. In general, viral illnesses are self-limited and antibiotics are unhelpful. You will most likely have symptoms for the next week or 2 but ultimately, these will resolve on their own. You may use Tylenol 650 mg every 4 hours or 1000 mg every 6 hours, and ibuprofen 600 mg every 6 hours, as needed for fever and/or body aches. The 2 medications may be taken at the same time as they are unrelated and will not cause harm if taken together. Please also be sure you are drinking lots of water, on the order of 8 to 10 cups/day, to stay hydrated while you are sick. You may schedule a follow-up with your primary doctor as needed. Forms: PCP List Discharge Date/Time: 09/12/23 00:27
[2023-09-12 00:31] VITALS: O2SAT 93
== END 2023-09-12 00:27 | disposition home or self-care (01) ==
LOC: ED 19:53
DX: B34.8 Other viral infections of unspecified site (principal); Z20.822 Contact with and (suspected) exposure to COVID-19; Z79.899 Other long term (current) drug therapy
CPT/HCPCS: 87633; 99283; 99284